=== PATIENT | female | born 1930 | race Caucasian/White ===

== ENCOUNTER → 2017-07-14 | Outpatient (CLI) | payer OTHER ==
--- NOTE | 2017-07-14 16:41 | KCIC ---
Bone mineral density exam History: Postmenopausal, osteoporosis screening Comparison: None Findings: Bone mineral density examination utilizing DEXA was performed. Left hip bone mineral density of 0.570 g/cm2 corresponds with a T score -3.0. The bone mineral density of the lumbar spine was 1.098 g/cm2 which corresponds with a T-score of 0.5. By World Congress on Osteoporosis criteria, a T score of 0 to-1 SD is considered to be within normal limits. A T score of -1 to -2.5 SD is considered osteopenia. A T score less than -2.5 SD is considered osteoporosis Impression: 1. 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 2. Bone mineral density of the lumbar spine is considered within normal limits although probably artificially elevated due to the presence of degenerative change. Electronically signed by: Anshul Blanton MD (07/14/2017 4:38 PM) [facility]
--- NOTE | 2017-07-15 10:09 | KCIC ---
Bilateral digital screening mammograms: Reason for examination: Routine screening. Baseline exam. Interpretation was made with the benefit of CAD. The skin and nipples show no abnormalities. No abnormal axillary lymph nodes are seen. The breast parenchyma shows scattered fibroglandular density. (Breast density: Category B.) There is a small nodule consistent with intramammary lymph node at the 2:00 C position of the left breast. There are no other dominant masses, suspicious calcifications or architectural distortions. Vascular calcifications are present. Impression: No evidence of malignancy. Recommend routine screening. BI-RADS Category 2: Benign. "Our facility is accredited by the [employer] [place] [employer] Mammography Program." This patient's information has been entered into a reminder system for the patient to be notified with the results of her examination and a target date for the next mammogram. Electronically signed by: Aida Luis MD (07/15/2017 10:06 AM) [id number]
== END | disposition home or self-care (01) ==
LOC: KCIC MAMMO 14:35
PROVIDERS: ATTEND Family Medicine
DX: Z12.31 Encounter for screening mammogram for malignant neoplasm of breast (principal); Z13.820 Encounter for screening for osteoporosis; M81.0 Age-related osteoporosis without current pathological fracture; Z78.0 Asymptomatic menopausal state
CPT/HCPCS: 77080; G0202; 77067

== ENCOUNTER → 2017-09-13 | Outpatient (CLI) | payer OTHER | END | disposition home or self-care (01) | LOC: PMGWOUND 13:31 | DX: L89.312 Pressure ulcer of right buttock, stage 2 (principal); M81.0 Age-related osteoporosis without current pathological fracture; E66.9 Obesity, unspecified; Z68.29 Body mass index [BMI] 29.0-29.9, adult; Z85.3 Personal history of malignant neoplasm of breast | CPT/HCPCS: 99204 ==

== ENCOUNTER 2018-08-25 15:55 | Inpatient (IN) | payer OTHER ==
[~2018-08-25] VITALS: Ht 165.1 cm; Wt 72.6 kg
[2018-08-25 17:31] LABS: BASO % 0 % (0-3); EOS % 0 % (0-3); LYMPH # 1.1 x10^3/uL (1.0-4.8); LYMPH % 9 % (24-48); MEAN CORPUSCULAR HEMOGLOBIN 29 pg (25-35); MEAN CORPUSCULAR HGB CONC 33 g/dL (31-37); MEAN CORPUSCULAR VOLUME 88 fL (79-100); MONO # 0.9 x10^3/uL (0.0-1.1); MONO % 7 % (0-9); NEUT # 10.4 x10^3uL (1.8-7.7); NEUT % 84 % (31-73); PLATELET COUNT 170 x10^3/uL (140-400); RED BLOOD COUNT 5.44 x10^6/uL (3.50-5.40); RED CELL DISTRIBUTION WIDTH 14.9 % (11.5-14.5); WHITE BLOOD COUNT 12.5 x10^3/uL (4.0-11.0)
--- NOTE | 2018-08-25 17:46 | EKG ---
[facility] [address] [place] [address] Test Date: 2018-08-25 Test Time: 16:49:11 Pat Name: MISTY BRANDT Department: Room: Gender: F [employer]: : 1930 Requested By: MYKEL STONE Order Number: [id number] Reading MD: Aaron Gupta Measurements Intervals [place] Rate: 82 P: -46 NH: 118 QRS: -33 QRSD: 90 T: 50 QT: 396 QTc: 466 Interpretive Statements SINUS RHYTHM NONSPECIFIC ST-T WAVE CHANGES Electronically Signed On 08-31-2018 15:03:46 YOUTUBER by Aaron Gupta
[2018-08-25 17:48] LABS: ALBUMIN 2.9 g/dL (3.4-5.0); ALBUMIN/GLOBULIN RATIO 0.5 (1.0-1.7); CALCIUM 9.7 mg/dL (8.5-10.1); CREATININE 2.6 mg/dL (0.6-1.0); GFR 17.5; TOTAL BILIRUBIN 1.5 mg/dL (0.2-1.0); TOTAL PROTEIN 8.6 g/dL (6.4-8.2)
[2018-08-25 17:52] LABS: POTASSIUM 2.9 mmol/L (3.5-5.1)
[2018-08-25 18:00] LABS: BILIRUBIN,URINE NEGATIVE (NEG); CLARITY,URINE CLEAR; COLOR,URINE YELLOW; NITRITE,URINE NEGATIVE (NEG); PROTEIN,URINE NEGATIVE (NEG-TRACE)
[2018-08-25] MEDS ORDERED: POTASSIUM CHLORIDE 20 MEQ TABLET.ER. PO ONE (18:00)
[2018-08-25] MEDS ORDERED: IV NORMAL SALINE 1000ML BAG 1,000 ML IV ONE ×2 (18:00→18:45)
[2018-08-25 18:07] LABS: RBC,URINE 0 /HPF (0-2); WBC,URINE 0 /HPF (0-4)
[2018-08-25 18:08] LABS: AMORPHOUS SEDIMENT,UR PRESENT /HPF; BACTERIA,URINE 0 /HPF (0-FEW); GRANULAR CASTS,URINE OCCASIONAL /HPF; HYALINE CASTS, URINE FEW /HPF; SQUAMOUS EPITHELIAL CELL,UR OCC /LPF
[2018-08-25] MEDS ORDERED: VANCOMYCIN PER PHARMACY MC PRN (18:30)
[2018-08-25] MEDS ORDERED: cefTRIAXone IV Push 1 GM VIAL. IVP ONE (18:30)
[2018-08-25] MEDS ORDERED: AZITHROMYCIN 250 MG TABLET. PO ONE (18:30)
[2018-08-25] MEDS ORDERED: ONDANSETRON PF 4 MG/2 ML VIAL. IV ONE (18:45)
[2018-08-25] MEDS ORDERED: VANCOMYCIN 1.5 GM in IV NORMAL SALINE 500ML BAG 500 ML IV ONE (18:45)
[2018-08-25] MEDS ORDERED: fentaNYL PF VIAL 100 MCG/2 ML VIAL IV PRN (19:00)
[2018-08-25] MEDS ORDERED: fentaNYL PF VIAL 100 MCG/2 ML VIAL IV ONE (19:00)
[2018-08-25] MEDS ORDERED: ACETAMINOPHEN 325 MG TABLET. PO PRN (19:00)
[2018-08-25] MEDS ORDERED: ONDANSETRON PF 4 MG/2 ML VIAL. IV PRN (19:00)
--- NOTE | 2018-08-25 19:27 | RAD ---
EXAM: Chest, single view. HISTORY: Weakness COMPARISON: None. FINDINGS: A frontal view of the chest is obtained. There is suspected left basilar pleural thickening or trace left pleural fluid. There is no infiltrate. There is no pneumothorax. The heart is normal in size. There are few calcified granulomas. IMPRESSION: Suspected left basilar pleural thickening or trace pleural fluid. Electronically signed by: Lennie Mesa MD (08/25/2018 7:23 PM) [facility]
--- NOTE | 2018-08-25 20:44 | NUR ---
Pharmacy Vancomycin Dosing Note S:Consulted to monitor and dose vancomycin started 08/25/18. O:MISTY BRANDT is a 88 year old F with Pneumonia Height: 5 feet, 5 inches Weight: 72.6 kg [place] Body Weight: 57.00 Adjusted Body Weight: 63.40 Dosing Weight: Actual Other Antibiotics: rocephin 1g 1x LABS: Last BUN: 67 Last Creatinine: 2.6 Creatinine Clearance: 15 mL/min Last WBC: 12.5 Last Platelets: 170 Tmax (past 24 hours): 97.8 Microbiology: - I/O: - Last dose given 08/25/18 at 1907 Vancomycin Dosing: Loading Dose: 1500 mg x1 Dosing Weight: Actual Target Trough: 15-20 A: Based on: weight and renal function P: 1. Dose Vancomycin 1500 mg IV One Time 2. Follow up Random level on 08/27/18 at 1900 3. Pharmacy will continue to monitor, follow and adjust therapy as needed. Olesya Aponte Tawnya, 08/25/18 [id number]
[2018-08-25] MEDS: IV NORMAL SALINE 1000ML BAG 1,000 ML IV SCH (22:17)
[2018-08-25 23:37] VITALS: BP 124/56
--- NOTE | 2018-08-25 23:37 | PHYS DOC ---
Past Medical History Past Medical History: Hypotension Past Surgical History: Appendectomy, Cholecystectomy Alcohol Use: Rarely Drug Use: None Adult General Chief Complaint Chief Complaint: WEAKNESS/GENERALIZED HPI HPI Patient is a 88 year old female who presents with weakness that has been increasing over the past month according to her daughter. Her daughter states that her mentation has changed over the past few days. She seems to have worsened with her memory. The patient also discovered sores on the patient's buttocks. She has had a mild cough but no fever. She denies urgency, frequency or burning with urination. She denies pain. Review of Systems Review of Systems Constitutional: Denies fever or chills [] Eyes: Denies change in visual acuity, redness, or eye pain [] HENT: Denies nasal congestion or sore throat [] Respiratory: Denies cough or shortness of breath [] Cardiovascular: No additional information not addressed in HPI [] GI: Denies abdominal pain, nausea, vomiting, bloody stools or diarrhea [] : Denies dysuria or hematuria [] Musculoskeletal: Denies back pain or joint pain [] Integument: Denies rash or skin lesions [] Neurologic: Denies headache, focal weakness or sensory changes [] Endocrine: Denies polyuria or polydipsia [] All other systems were reviewed and found to be within normal limits, except as documented in this note. Current Medications Current Medications Current Medications Medications (Trade) Dose Ordered Sig/Edwin Start Time Stop Time Status Last Admin Dose Admin Potassium Chloride (Klor-Con) 40 meq 1X ONCE 08/25/18 18:00 08/25/18 18:01 DC 08/25/18 18:12 40 MEQ Sodium Chloride 1,000 ml @ 1,000 mls/hr 1X ONCE 08/25/18 18:00 08/25/18 18:59 DC 08/25/18 18:13 1,000 MLS/HR Allergies Allergies Allergies Coded Allergies Type Severity Reaction Last Updated Verified No Known Drug Allergies 08/25/18 No Physical Exam Physical Exam Constitutional: Well developed, well nourished, no acute distress, non-toxic appearance. [] HENT: Normocephalic, atraumatic, bilateral external ears normal, oropharynx moist, no oral exudates, nose normal. [] Eyes: PERRLA, EOMI, conjunctiva normal, no discharge. [] Neck: Normal range of motion, no tenderness, supple, no stridor. [] Cardiovascular:Heart rate regular rhythm, no murmur [] Lungs & Thorax: Bilateral breath sounds clear to auscultation [] Abdomen: Bowel sounds normal, soft, no tenderness, no masses, no pulsatile masses. [] Skin: The patient has skin breakdown to bilateral buttocks, intertrigo noted to right abdominal fold and under left breast Back: No tenderness, no CVA tenderness. [] Extremities: No tenderness, no cyanosis, no clubbing, ROM intact, no edema. [] Neurologic: Alert and oriented X 3, normal motor function, normal sensory function, no focal deficits noted. [] Psychologic: Affect flat, judgement normal, mood normal. [] Current Patient Data Vital Signs Vital Signs Date Time Temp Pulse Resp B/P (MAP) Pulse Ox O2 Delivery O2 Flow Rate FiO2 08/25/18 18:00 68 18 97 08/25/18 16:20 97.8 158/73 (101) Room Air 97.8 Lab Values Laboratory Tests Test 08/25/18 16:39 08/25/18 17:15 08/25/18 17:50 Sodium Level 142 mmol/L (136-145) Potassium Level 2.9 mmol/L (3.5-5.1) *L Chloride Level 97 mmol/L (98-107) L Carbon Dioxide Level 29 mmol/L (21-32) Anion Gap 16 (6-14) H Blood Urea Nitrogen 67 mg/dL (7-20) H Creatinine 2.6 mg/dL (0.6-1.0) H Estimated GFR (Cockcroft-Gault) 17.5 BUN/Creatinine Ratio 26 (6-20) H Glucose Level 125 mg/dL (70-99) H Calcium Level 9.7 mg/dL (8.5-10.1) Total Bilirubin 1.5 mg/dL (0.2-1.0) H Aspartate Amino Transferase (AST) 33 U/L (15-37) Alanine Aminotransferase (ALT) 26 U/L (14-59) Alkaline Phosphatase 143 U/L (46-116) H Total Protein 8.6 g/dL (6.4-8.2) H Albumin 2.9 g/dL (3.4-5.0) L Albumin/Globulin Ratio 0.5 (1.0-1.7) L White Blood Count 12.5 x10^3/uL (4.0-11.0) H Red Blood Count 5.44 x10^6/uL (3.50-5.40) H Hemoglobin 16.0 g/dL (12.0-15.5) H Hematocrit 48.0 % (36.0-47.0) H Mean Corpuscular Volume 88 fL (79-100) Mean Corpuscular Hemoglobin 29 pg (25-35) Mean Corpuscular Hemoglobin Concent 33 g/dL (31-37) Red Cell Distribution Width 14.9 % (11.5-14.5) H Platelet Count 170 x10^3/uL (140-400) Neutrophils (%) (Auto) 84 % (31-73) H Lymphocytes (%) (Auto) 9 % (24-48) L Monocytes (%) (Auto) 7 % (0-9) Eosinophils (%) (Auto) 0 % (0-3) Basophils (%) (Auto) 0 % (0-3) Neutrophils # (Auto) 10.4 x10^3uL (1.8-7.7) H Lymphocytes # (Auto) 1.1 x10^3/uL (1.0-4.8) Monocytes # (Auto) 0.9 x10^3/uL (0.0-1.1) Eosinophils # (Auto) 0.0 x10^3/uL (0.0-0.7) Basophils # (Auto) 0.0 x10^3/uL (0.0-0.2) Lactic Acid Level 4.1 mmol/L (0.4-2.0) *H Troponin I Quantitative 0.021 ng/mL (0.000-0.055) Urine Collection Type U cath Urine Color Yellow Urine Clarity Clear Urine pH 5.0 Urine Specific [place] 1.020 Urine Protein Negative mg/dL (NEG-TRACE) Urine Glucose (UA) Negative mg/dL (NEG) Urine Ketones (Stick) Negative mg/dL (NEG) Urine Blood Negative (NEG) Urine Nitrite Negative (NEG) Urine Bilirubin Negative (NEG) Urine Urobilinogen Dipstick 1.0 mg/dL (0.2 mg/dL) Urine Leukocyte Esterase Negative (NEG) Urine RBC 0 /HPF (0-2) Urine WBC 0 /HPF (0-4) Urine Squamous Epithelial Cells Occ /LPF Urine Amorphous Sediment Present /HPF Urine Bacteria 0 /HPF (0-FEW) Urine Hyaline Casts Few /HPF Urine Granular Casts Occasional /HPF Urine Mucus Slight /LPF Laboratory Tests 08/25/18 17:15 Laboratory Tests 08/25/18 16:39 EKG EKG [] Radiology/Procedures Radiology/Procedures []PATIENT: MISTY BRANDT BACCOUNT: [id number]#: [id number] : 1930 LOCATION: ER AGE: 88 SEX: F EXAM STATUS: REG ER ORD. PHYSICIAN: MYKEL STONE APRN REASON: weakness PROCEDURE: CHEST AP ONLY EXAM: Chest, single view. HISTORY: Weakness COMPARISON: None. FINDINGS: A frontal view of the chest is obtained. There is suspected left basilar pleural thickening or trace left pleural fluid. There is no infiltrate. There is no pneumothorax. The heart is normal in size. There are few calcified granulomas. IMPRESSION: Suspected left basilar pleural thickening or trace pleural fluid. Electronically signed by: Lennie Kumari MD (08/25/2018 7:23 PM) [facility] DICTATED and SIGNED BY: LENNIE KUMARI MD DATE: 08/25/181922 Course & Med Decision Making Course & Med Decision Making Pertinent Labs and Imaging studies reviewed. (See chart for details) []The patient does have an elevated creatinine as well as a slightly elevated white count. Her daughter states that she has no prior history of kidney disease. She is being admitted to Dr. Lang's service. She has been given Rocephin and Ancef, for her findings on chest x-ray as well as her skin condition. Nephrology was consulted. She is receiving fluid boluses for her creatinine. Dragon Disclaimer Dragon Disclaimer This electronic medical record was generated, in whole or in part, using a voice recognition dictation system. Departure Departure Impression: Primary Impression: Skin breakdown Additional Impressions: Elevated serum creatinine Weakness Disposition: ADMITTED INPATIENT Admitting Physician: Other Condition: STABLE Referrals: JAVI PORTILLO (PCP) Problem Qualifiers MYKEL STONE APRN Aug 25, 2018 23:37
[2018-08-26] MEDS ORDERED: POTA10TA12 PO (02:17)
[2018-08-26] MEDS ORDERED: CHLO25TA10 PO (02:17)
[2018-08-26] MEDS ORDERED: FURO20TA3 PO (02:17)
[2018-08-26] MEDS ORDERED: CHOL10003 PO (02:17)
[2018-08-26] MEDS ORDERED: DOXY100C2 PO (02:17)
[2018-08-26 03:19] VITALS: BP 107/56
[2018-08-26] MEDS: IV NORMAL SALINE 1000ML BAG 1,000 ML IV SCH ×2 (04:22→12:46)
[2018-08-26 07:00] VITALS: BP 111/55
[2018-08-26] MEDS ORDERED: ONDANSETRON PF 4 MG/2 ML VIAL. IV PRN (08:15)
--- NOTE | 2018-08-26 08:49 | PDOC1 ---
History and Physical Date of Admission Date of Admission DATE: 08/26/18 TIME: 08:38 Identification/Chief Complaint Chief Complaint Worsening confusion and weakness in the assisted Source Source: Caregiver, Chart review, Patient History of Present Illness History of Present Illness 88-year-old female who is a assisted resident, no daughter at bedside currently but apparently Dtr. Might have been at the emergency room. In any case brought in by staff because of worsening confusion, decreased by mouth and worsening generalized weakness in the assisted. On labs found to be dehydrated with a creatinine of 2.6 which is new, hypokalemia 2.9. Hemoconcentration hemoglobin 16 with a leukocytosis of 12 with no source of infection. UA isn't impressive for UTI, chest x-ray maybe just shows atelectasis. She was started on vancomycin-unclear reasons. But creatinine is 2.6. Platelets are normal at 170. I am holding diuretic - she is on chlorthalidone HCTZ etc. at home. Minimal historian. She does have buttock sores. Most likely she has just minimal ambulation. We'll consult wound care. Renal has also been consulted and getting IV fluid aggressive hydration anywhere between 125 to 150 mL an hour. Past Medical History Cardiovascular: HTN Pulmonary: Bronchitis Past Surgical History Past Surgical History: Other (unknown) Family History Family History: Family History Unknown Social History Smoke: No ALCOHOL: none Drugs: None Current Problem List Problem List Problems Medical Problems: (1) Elevated serum creatinine Status: Acute (2) Skin breakdown Status: Acute (3) Weakness Status: Acute Current Medications Current Medications Current Medications Sodium Chloride 1,000 ml @ 1,000 mls/hr 1X ONCE IV Last administered on 08/25at 18:13; Start 08/25/18 at 18:00; Stop 08/25/18 at 18:59; Status DC Potassium Chloride (Klor-Con) 40 meq 1X ONCE PO Last administered on at 18:12; Start 08/25/18 at 18:00; Stop 08/25/18 at 18:01; Status DC Azithromycin (Zithromax) 1,000 mg 1X ONCE PO ; Start 08/25/18 at 18:30; Stop 08/25/18 at 18:31; Status UNV Ceftriaxone Sodium (Rocephin) 1 gm 1X ONCE IVP Last administered on at 19:06; Start 08/25/18 at 18:30; Stop 08/25/18 at 18:31; Status DC Vancomycin HCl (Vanco Per Pharmacy) 1 each PRN DAILY PRN MC SEE COMMENTS Last administered on 08/25/18at 20:41; Start 08/25/18 at 18:30; Stop 08/26/18 at 08 :01; Status DC Vancomycin HCl 1.5 gm/Sodium Chloride 500 ml @ 250 mls/hr 1X ONCE IV Last administered on 08/25/18at 19:07; Start 08/25/18 at 18:45; Stop 08/25/18 at 20 :44; Status DC Ondansetron HCl (Zofran) 4 mg 1X ONCE IV Last administered on 08/25/18at 19:06 ; Start 08/25/18 at 18:45; Stop 08/25/18 at 18:46; Status DC Sodium Chloride 1,000 ml @ 1,000 mls/hr 1X ONCE IV Last administered on 08/25at 19:22; Start 08/25/18 at 18:45; Stop 08/25/18 at 19:44; Status DC Fentanyl Citrate (Fentanyl 2ml Vial) 50 mcg 1X ONCE IV Last administered on at 19:06; Start 08/25/18 at 19:00; Stop 08/25/18 at 19:01; Status DC Ondansetron HCl (Zofran) 4 mg PRN Q8HRS PRN IV NAUSEA/VOMITING; Start at 19:00; Stop 08/26/18 at 08:01; Status DC Fentanyl Citrate (Fentanyl 2ml Vial) 50 mcg PRN Q1HR PRN IV PAIN; Start at 19:00; Stop 08/26/18 at 18:59 Sodium Chloride 1,000 ml @ 125 mls/hr Q8H IV Last administered on 08/26/18at 04:22; Start 08/25/18 at 18:47; Stop 08/26/18 at 18:46 Acetaminophen (Tylenol) 650 mg PRN Q4HRS PRN PO FEVER; Start 08/25/18 at 19:00 ; Stop 08/26/18 at 18:59 Vancomycin HCl (Vancomycin Random Level) 1 each 1X ONCE MC ; Start 08/27/18 at 19:00; Stop 08/27/18 at 19:01; Status Cancel Influenza Virus Vaccine (Afluria Trivalent [id number] Syringe) 0.5 ml ONCE ONCE VAX IM ; Start 08/25/18 at 22:00; Stop 08/25/18 at 22:01; Status DC Ondansetron HCl (Zofran) 4 mg PRN Q6HRS PRN IV NAUSEA/VOMITING; Start at 08:15 Vitamin D (Vitamin D3) 3,000 unit DAILY PO ; Start 08/26/18 at 09:00 Potassium Chloride (Klor-Con) 40 meq 1X ONCE PO ; Start 08/26/18 at 09:00; Stop 08/26/18 at 09:01 Potassium Chloride (Klor-Con) 40 meq DAILYWBKFT PO ; Start 08/27/18 at 08:00 Active Scripts Active Reported Doxycycline Hyclate 100 Mg Capsule 1 Cap PO BID Chlorthalidone (Chlorthalidone) 25 Mg Tablet 25 Mg PO DAILY Furosemide 20 Mg Tablet 20 Mg PO DAILY Potassium Chloride 10 Meq Tab.sr.24h 10 Meq PO DAILY Vitamin D3 (Cholecalciferol (Vitamin D3)) 1,000 Unit Tablet 3,000 Unit PO DAILY Allergies Allergies: Coded Allergies: No Known Drug Allergies (Unverified , 08/25/18) ROS Review of System limited ROS, some dementia or cognitive impairment, she denies any pain to me Physical Exam General: Cooperative, No acute distress, Other (oriented to self and place, calm) HEENT: Atraumatic, PERRLA, EOMI Lungs: Normal air movement, Other (decreased breath sounds, poor effort) Cardiovascular: S1, S2 Breasts: Normal, Rt breast nml w/o mass, Lt breast nml w/o mass, Nipples normal Abdomen: Normal bowel sounds, Soft, No tenderness, No hepatosplenomegaly, No masses Rectal Exam: not examined PELVIC: Nml ext genitalia Extremities: No clubbing, No cyanosis, No edema, Normal pulses, No tenderness/ swelling Skin: Other (senile skin turgor, minimal subcutaneous tissue) Neuro: Normal gait, Normal speech, Strength at 5/5 X4 ext, Normal tone, Sensation intact, Cranial nerves 3-12 NL, Reflexes 2+ Psych/Mental Status: Mental status NL, Mood NL Vitals Vitals Vital Signs Date Time Temp Pulse Resp B/P (MAP) Pulse Ox O2 Delivery O2 Flow Rate FiO2 08/26/18 07:00 97.8 70 18 111/55 (73) 99 Nasal Cannula 3.0 97.8 Labs Labs Laboratory Tests Test 08/25/18 16:39 08/25/18 17:15 08/25/18 17:50 08/25/18 21:15 Sodium Level 142 mmol/L (136-145) Potassium Level 2.9 mmol/L (3.5-5.1) Chloride Level 97 mmol/L (98-107) Carbon Dioxide Level 29 mmol/L (21-32) Anion Gap 16 (6-14) Blood Urea Nitrogen 67 mg/dL (7-20) Creatinine 2.6 mg/dL (0.6-1.0) Estimated GFR (Cockcroft-Gault) 17.5 BUN/Creatinine Ratio 26 (6-20) Glucose Level 125 mg/dL (70-99) Calcium Level 9.7 mg/dL (8.5-10.1) Total Bilirubin 1.5 mg/dL (0.2-1.0) Aspartate Amino Transf (AST/SGOT) 33 U/L (15-37) Alanine Aminotransferase (ALT/SGPT) 26 U/L (14-59) Alkaline Phosphatase 143 U/L (46-116) Total Protein 8.6 g/dL (6.4-8.2) Albumin 2.9 g/dL (3.4-5.0) Albumin/Globulin Ratio 0.5 (1.0-1.7) White Blood Count 12.5 x10^3/uL (4.0-11.0) Red Blood Count 5.44 x10^6/uL (3.50-5.40) Hemoglobin 16.0 g/dL (12.0-15.5) Hematocrit 48.0 % (36.0-47.0) Mean Corpuscular Volume 88 fL (79-100) Mean Corpuscular Hemoglobin 29 pg (25-35) Mean Corpuscular Hemoglobin Concent 33 g/dL (31-37) Red Cell Distribution Width 14.9 % (11.5-14.5) Platelet Count 170 x10^3/uL (140-400) Neutrophils (%) (Auto) 84 % (31-73) Lymphocytes (%) (Auto) 9 % (24-48) Monocytes (%) (Auto) 7 % (0-9) Eosinophils (%) (Auto) 0 % (0-3) Basophils (%) (Auto) 0 % (0-3) Neutrophils # (Auto) 10.4 x10^3uL (1.8-7.7) Lymphocytes # (Auto) 1.1 x10^3/uL (1.0-4.8) Monocytes # (Auto) 0.9 x10^3/uL (0.0-1.1) Eosinophils # (Auto) 0.0 x10^3/uL (0.0-0.7) Basophils # (Auto) 0.0 x10^3/uL (0.0-0.2) Lactic Acid Level 4.1 mmol/L (0.4-2.0) 2.6 mmol/L (0.4-2.0) Troponin I Quantitative 0.021 ng/mL (0.000-0.055) Urine Collection Type U cath Urine Color Yellow Urine Clarity Clear Urine pH 5.0 Urine Specific [place] 1.020 Urine Protein Negative mg/dL (NEG-TRACE) Urine Glucose (UA) Negative mg/dL (NEG) Urine Ketones (Stick) Negative mg/dL (NEG) Urine Blood Negative (NEG) Urine Nitrite Negative (NEG) Urine Bilirubin Negative (NEG) Urine Urobilinogen Dipstick 1.0 mg/dL (0.2 mg/dL) Urine Leukocyte Esterase Negative (NEG) Urine RBC 0 /HPF (0-2) Urine WBC 0 /HPF (0-4) Urine Squamous Epithelial Cells Occ /LPF Urine Amorphous Sediment Present /HPF Urine Bacteria 0 /HPF (0-FEW) Urine Hyaline Casts Few /HPF Urine Granular Casts Occasional /HPF Urine Mucus Slight /LPF Laboratory Tests Test 08/25/18 16:39 08/25/18 17:15 08/25/18 17:50 08/25/18 21:15 Sodium Level 142 mmol/L (136-145) Potassium Level 2.9 mmol/L (3.5-5.1) Chloride Level 97 mmol/L (98-107) Carbon Dioxide Level 29 mmol/L (21-32) Anion Gap 16 (6-14) Blood Urea Nitrogen 67 mg/dL (7-20) Creatinine 2.6 mg/dL (0.6-1.0) Estimated GFR (Cockcroft-Gault) 17.5 BUN/Creatinine Ratio 26 (6-20) Glucose Level 125 mg/dL (70-99) Calcium Level 9.7 mg/dL (8.5-10.1) Total Bilirubin 1.5 mg/dL (0.2-1.0) Aspartate Amino Transf (AST/SGOT) 33 U/L (15-37) Alanine Aminotransferase (ALT/SGPT) 26 U/L (14-59) Alkaline Phosphatase 143 U/L (46-116) Total Protein 8.6 g/dL (6.4-8.2) Albumin 2.9 g/dL (3.4-5.0) Albumin/Globulin Ratio 0.5 (1.0-1.7) White Blood Count 12.5 x10^3/uL (4.0-11.0) Red Blood Count 5.44 x10^6/uL (3.50-5.40) Hemoglobin 16.0 g/dL (12.0-15.5) Hematocrit 48.0 % (36.0-47.0) Mean Corpuscular Volume 88 fL (79-100) Mean Corpuscular Hemoglobin 29 pg (25-35) Mean Corpuscular Hemoglobin Concent 33 g/dL (31-37) Red Cell Distribution Width 14.9 % (11.5-14.5) Platelet Count 170 x10^3/uL (140-400) Neutrophils (%) (Auto) 84 % (31-73) Lymphocytes (%) (Auto) 9 % (24-48) Monocytes (%) (Auto) 7 % (0-9) Eosinophils (%) (Auto) 0 % (0-3) Basophils (%) (Auto) 0 % (0-3) Neutrophils # (Auto) 10.4 x10^3uL (1.8-7.7) Lymphocytes # (Auto) 1.1 x10^3/uL (1.0-4.8) Monocytes # (Auto) 0.9 x10^3/uL (0.0-1.1) Eosinophils # (Auto) 0.0 x10^3/uL (0.0-0.7) Basophils # (Auto) 0.0 x10^3/uL (0.0-0.2) Lactic Acid Level 4.1 mmol/L (0.4-2.0) 2.6 mmol/L (0.4-2.0) Troponin I Quantitative 0.021 ng/mL (0.000-0.055) Urine Collection Type U cath Urine Color Yellow Urine Clarity Clear Urine pH 5.0 Urine Specific [place] 1.020 Urine Protein Negative mg/dL (NEG-TRACE) Urine Glucose (UA) Negative mg/dL (NEG) Urine Ketones (Stick) Negative mg/dL (NEG) Urine Blood Negative (NEG) Urine Nitrite Negative (NEG) Urine Bilirubin Negative (NEG) Urine Urobilinogen Dipstick 1.0 mg/dL (0.2 mg/dL) Urine Leukocyte Esterase Negative (NEG) Urine RBC 0 /HPF (0-2) Urine WBC 0 /HPF (0-4) Urine Squamous Epithelial Cells Occ /LPF Urine Amorphous Sediment Present /HPF Urine Bacteria 0 /HPF (0-FEW) Urine Hyaline Casts Few /HPF Urine Granular Casts Occasional /HPF Urine Mucus Slight /LPF VTE Prophylaxis Ordered VTE Prophylaxis Devices: Yes VTE Pharmacological Prophylaxi: Yes Assessment/Plan Assessment/Plan Severe dehydration evidenced by hemoconcentration reactive leukocytosis and hypercalcemia Sepsis/SIRS with AK I VMN-lactate 4.1 on admission, down to 2.6 after IV fluid No signs of infection Critical hypokalemia 2.9 AK I VMN-creatinine 2.6-on chlorthalidone at home SNU resident Worsening generalized weakness in the background of dehydration Possible dementia FULL CODE Plan: ADMit 2 MN Agree with aggressive IV fluid hydration, hold chlorthalidone and nephrotoxins Renal has been consulted BMP again tomorrow PT OT So far full code on chart I DC vancomycin since I don't have a strong source of infection and it is nephrotoxic Recheck hemoconcentration and leukocytosis tomorrow Fall risk Nutrition consult Further recs pending above MAXX MANRIQUEZ MD Aug 26, 2018 08:49
[2018-08-26] MEDS ORDERED: POTASSIUM CHLORIDE 20 MEQ TABLET.ER. PO ONE (09:00)
[2018-08-26] MEDS: CHOLECALCIFEROL (VITAMIN D3) 1,000 UNIT TABLET PO SCH (09:05)
[2018-08-26 10:20] LABS: BASO % 0 % (0-3); EOS # 0.1 x10^3/uL (0.0-0.7); EOS % 1 % (0-3); HEMATOCRIT 39.6 % (36.0-47.0); HEMOGLOBIN 13.4 g/dL (12.0-15.5); LYMPH # 1.4 x10^3/uL (1.0-4.8); LYMPH % 14 % (24-48); MEAN CORPUSCULAR HEMOGLOBIN 30 pg (25-35); MEAN CORPUSCULAR HGB CONC 34 g/dL (31-37); MEAN CORPUSCULAR VOLUME 90 fL (79-100); MONO # 0.6 x10^3/uL (0.0-1.1); MONO % 6 % (0-9); NEUT # 8.5 x10^3uL (1.8-7.7); NEUT % 80 % (31-73); PLATELET COUNT 137 x10^3/uL (140-400); RED BLOOD COUNT 4.41 x10^6/uL (3.50-5.40); RED CELL DISTRIBUTION WIDTH 14.6 % (11.5-14.5); WHITE BLOOD COUNT 10.7 x10^3/uL (4.0-11.0)
[2018-08-26 10:33] LABS: CALCIUM 8.1 mg/dL (8.5-10.1); GFR 23.6
[2018-08-26 10:39] LABS: POTASSIUM 2.7 mmol/L (3.5-5.1)
[2018-08-26 11:00] VITALS: BP 124/56
--- NOTE | 2018-08-26 13:34 | PDOC2 ---
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 On labs found to be dehydrated with a creatinine of 2.6 which is new, hypokalemia 2.9. She is on chlorthalidone HCTZ etc. at home. Poor historian. She is sitting up in bed, alert. States she is doing alright. Denies any N/V As per RN- family reported she had vomiting at the [place] . She is Incontinent , she denies any Symptoms of UTI Past Medical History Cardiovascular: HTN Pulmonary: Bronchitis Past Surgical History Past Surgical History: Other (unknown) Family History Family History: Family History Unknown Social History No ALCOHOL: none Drugs: None Current Problem List Problem List Problems Medical Problems: (1) Elevated serum creatinine Status: Acute (2) Skin breakdown Status: Acute (3) Weakness Status: Acute Current Medications Current Medications Current Medications Sodium Chloride 1,000 ml @ 1,000 mls/hr 1X ONCE IV Last administered on 08/25at 18:13; Start 08/25/18 at 18:00; Stop 08/25/18 at 18:59; Status DC Potassium Chloride (Klor-Con) 40 meq 1X ONCE PO Last administered on at 18:12; Start 08/25/18 at 18:00; Stop 08/25/18 at 18:01; Status DC Azithromycin (Zithromax) 1,000 mg 1X ONCE PO ; Start 08/25/18 at 18:30; Stop 08/25/18 at 18:31; Status UNV Ceftriaxone Sodium (Rocephin) 1 gm 1X ONCE IVP Last administered on at 19:06; Start 08/25/18 at 18:30; Stop 08/25/18 at 18:31; Status DC Vancomycin HCl (Vanco Per Pharmacy) 1 each PRN DAILY PRN MC SEE COMMENTS Last administered on 08/25/18at 20:41; Start 08/25/18 at 18:30; Stop 08/26/18 at 08 :01; Status DC Vancomycin HCl 1.5 gm/Sodium Chloride 500 ml @ 250 mls/hr 1X ONCE IV Last administered on 08/25/18at 19:07; Start 08/25/18 at 18:45; Stop 08/25/18 at 20 :44; Status DC Ondansetron HCl (Zofran) 4 mg 1X ONCE IV Last administered on 08/25/18at 19:06 ; Start 08/25/18 at 18:45; Stop 08/25/18 at 18:46; Status DC Sodium Chloride 1,000 ml @ 1,000 mls/hr 1X ONCE IV Last administered on 08/25at 19:22; Start 08/25/18 at 18:45; Stop 08/25/18 at 19:44; Status DC Fentanyl Citrate (Fentanyl 2ml Vial) 50 mcg 1X ONCE IV Last administered on at 19:06; Start 08/25/18 at 19:00; Stop 08/25/18 at 19:01; Status DC Ondansetron HCl (Zofran) 4 mg PRN Q8HRS PRN IV NAUSEA/VOMITING; Start at 19:00; Stop 08/26/18 at 08:01; Status DC Fentanyl Citrate (Fentanyl 2ml Vial) 50 mcg PRN Q1HR PRN IV PAIN; Start at 19:00; Stop 08/26/18 at 18:59 Sodium Chloride 1,000 ml @ 125 mls/hr Q8H IV Last administered on 08/26/18at 12:46; Start 08/25/18 at 18:47; Stop 08/26/18 at 18:46 Acetaminophen (Tylenol) 650 mg PRN Q4HRS PRN PO FEVER Last administered on at 09:05; Start 08/25/18 at 19:00; Stop 08/26/18 at 18:59 Vancomycin HCl (Vancomycin Random Level) 1 each 1X ONCE MC ; Start 08/27/18 at 19:00; Stop 08/27/18 at 19:01; Status Cancel Influenza Virus Vaccine (Afluria Trivalent [id number] Syringe) 0.5 ml ONCE ONCE VAX IM Last administered on 08/26/18at 12:49; Start 08/25/18 at 22:00; Stop 08/25/18 at 22:01; Status DC Ondansetron HCl (Zofran) 4 mg PRN Q6HRS PRN IV NAUSEA/VOMITING; Start at 08:15 Vitamin D (Vitamin D3) 3,000 unit DAILY PO Last administered on 08/26/18at 09: 05; Start 08/26/18 at 09:00 Potassium Chloride (Klor-Con) 40 meq 1X ONCE PO Last administered on at 09:05; Start 08/26/18 at 09:00; Stop 08/26/18 at 09:01; Status DC Potassium Chloride (Klor-Con) 40 meq DAILYWBKFT PO ; Start 08/27/18 at 08:00; Stop 08/27/18 at 08:00; Status DC Potassium Chloride (Klor-Con) 40 meq BIDWMEALS PO ; Start 08/26/18 at 17:00 Active Scripts Active Reported Doxycycline Hyclate 100 Mg Capsule 1 Cap PO BID Chlorthalidone (Chlorthalidone) 25 Mg Tablet 25 Mg PO DAILY Furosemide 20 Mg Tablet 20 Mg PO DAILY Potassium Chloride 10 Meq Tab.sr.24h 10 Meq PO DAILY Vitamin D3 (Cholecalciferol (Vitamin D3)) 1,000 Unit Tablet 3,000 Unit PO DAILY Allergies Allergies: Coded Allergies: No Known Drug Allergies (Unverified , 08/25/18) ROS Review of System Poor Historian Physical Exam Physical Exam General: No acute distress, oriented to self and place HEENT: OM dry Neck Supple, No JVD Lungs: CTA , No use of acc muscle Cardiovascular: S1, S2, RRR Abdomen: , Soft, No tenderness Extremities: No edema, Skin: No rash Neuro: Grossly normal - No coleman, No CVA or SP tenderness Vital Signs Vital Signs Date Time Temp Pulse Resp B/P (MAP) Pulse Ox O2 Delivery O2 Flow Rate FiO2 08/26/18 11:00 97.3 60 16 124/56 (78) 99 Nasal Cannula 3.0 97.3 Assessment & Plan ANNIE- pre-renal/ Dehydration- Poor PO intake UA Unremarkable IVF , Holding Diuretics Creatinine improving Hypokalemia- Critical , Replacing HTN- BP stable IVF , Hold antihypertensives Alerted MS- Currently alert Discussed with RN and family at bedside Labs Labs Laboratory Tests Test 08/25/18 16:39 08/25/18 17:15 08/25/18 17:50 08/25/18 21:15 Sodium Level 142 mmol/L (136-145) Potassium Level 2.9 mmol/L (3.5-5.1) Chloride Level 97 mmol/L (98-107) Carbon Dioxide Level 29 mmol/L (21-32) Anion Gap 16 (6-14) Blood Urea Nitrogen 67 mg/dL (7-20) Creatinine 2.6 mg/dL (0.6-1.0) Estimated GFR (Cockcroft-Gault) 17.5 BUN/Creatinine Ratio 26 (6-20) Glucose Level 125 mg/dL (70-99) Calcium Level 9.7 mg/dL (8.5-10.1) Total Bilirubin 1.5 mg/dL (0.2-1.0) Aspartate Amino Transf (AST/SGOT) 33 U/L (15-37) Alanine Aminotransferase (ALT/SGPT) 26 U/L (14-59) Alkaline Phosphatase 143 U/L (46-116) Total Protein 8.6 g/dL (6.4-8.2) Albumin 2.9 g/dL (3.4-5.0) Albumin/Globulin Ratio 0.5 (1.0-1.7) White Blood Count 12.5 x10^3/uL (4.0-11.0) Red Blood Count 5.44 x10^6/uL (3.50-5.40) Hemoglobin 16.0 g/dL (12.0-15.5) Hematocrit 48.0 % (36.0-47.0) Mean Corpuscular Volume 88 fL (79-100) Mean Corpuscular Hemoglobin 29 pg (25-35) Mean Corpuscular Hemoglobin Concent 33 g/dL (31-37) Red Cell Distribution Width 14.9 % (11.5-14.5) Platelet Count 170 x10^3/uL (140-400) Neutrophils (%) (Auto) 84 % (31-73) Lymphocytes (%) (Auto) 9 % (24-48) Monocytes (%) (Auto) 7 % (0-9) Eosinophils (%) (Auto) 0 % (0-3) Basophils (%) (Auto) 0 % (0-3) Neutrophils # (Auto) 10.4 x10^3uL (1.8-7.7) Lymphocytes # (Auto) 1.1 x10^3/uL (1.0-4.8) Monocytes # (Auto) 0.9 x10^3/uL (0.0-1.1) Eosinophils # (Auto) 0.0 x10^3/uL (0.0-0.7) Basophils # (Auto) 0.0 x10^3/uL (0.0-0.2) Lactic Acid Level 4.1 mmol/L (0.4-2.0) 2.6 mmol/L (0.4-2.0) Troponin I Quantitative 0.021 ng/mL (0.000-0.055) Urine Collection Type U cath Urine Color Yellow Urine Clarity Clear Urine pH 5.0 Urine Specific [place] 1.020 Urine Protein Negative mg/dL (NEG-TRACE) Urine Glucose (UA) Negative mg/dL (NEG) Urine Ketones (Stick) Negative mg/dL (NEG) Urine Blood Negative (NEG) Urine Nitrite Negative (NEG) Urine Bilirubin Negative (NEG) Urine Urobilinogen Dipstick 1.0 mg/dL (0.2 mg/dL) Urine Leukocyte Esterase Negative (NEG) Urine RBC 0 /HPF (0-2) Urine WBC 0 /HPF (0-4) Urine Squamous Epithelial Cells Occ /LPF Urine Amorphous Sediment Present /HPF Urine Bacteria 0 /HPF (0-FEW) Urine Hyaline Casts Few /HPF Urine Granular Casts Occasional /HPF Urine Mucus Slight /LPF Test 08/26/18 09:25 08/26/18 09:35 White Blood Count 10.7 x10^3/uL (4.0-11.0) Red Blood Count 4.41 x10^6/uL (3.50-5.40) Hemoglobin 13.4 g/dL (12.0-15.5) Hematocrit 39.6 % (36.0-47.0) Mean Corpuscular Volume 90 fL (79-100) Mean Corpuscular Hemoglobin 30 pg (25-35) Mean Corpuscular Hemoglobin Concent 34 g/dL (31-37) Red Cell Distribution Width 14.6 % (11.5-14.5) Platelet Count 137 x10^3/uL (140-400) Neutrophils (%) (Auto) 80 % (31-73) Lymphocytes (%) (Auto) 14 % (24-48) Monocytes (%) (Auto) 6 % (0-9) Eosinophils (%) (Auto) 1 % (0-3) Basophils (%) (Auto) 0 % (0-3) Neutrophils # (Auto) 8.5 x10^3uL (1.8-7.7) Lymphocytes # (Auto) 1.4 x10^3/uL (1.0-4.8) Monocytes # (Auto) 0.6 x10^3/uL (0.0-1.1) Eosinophils # (Auto) 0.1 x10^3/uL (0.0-0.7) Basophils # (Auto) 0.0 x10^3/uL (0.0-0.2) Erythrocyte Sedimentation Rate 10 (0-25) Sodium Level 146 mmol/L (136-145) Potassium Level 2.7 mmol/L (3.5-5.1) Chloride Level 107 mmol/L (98-107) Carbon Dioxide Level 28 mmol/L (21-32) Anion Gap 11 (6-14) Blood Urea Nitrogen 50 mg/dL (7-20) Creatinine 2.0 mg/dL (0.6-1.0) Estimated GFR (Cockcroft-Gault) 23.6 Glucose Level 110 mg/dL (70-99) Calcium Level 8.1 mg/dL (8.5-10.1) Thyroid Stimulating Hormone (TSH) 0.628 uIU/mL (0.358-3.74) Laboratory Tests Test 08/25/18 16:39 08/25/18 17:15 08/25/18 17:50 08/25/18 21:15 Sodium Level 142 mmol/L (136-145) Potassium Level 2.9 mmol/L (3.5-5.1) Chloride Level 97 mmol/L (98-107) Carbon Dioxide Level 29 mmol/L (21-32) Anion Gap 16 (6-14) Blood Urea Nitrogen 67 mg/dL (7-20) Creatinine 2.6 mg/dL (0.6-1.0) Estimated GFR (Cockcroft-Gault) 17.5 BUN/Creatinine Ratio 26 (6-20) Glucose Level 125 mg/dL (70-99) Calcium Level 9.7 mg/dL (8.5-10.1) Total Bilirubin 1.5 mg/dL (0.2-1.0) Aspartate Amino Transf (AST/SGOT) 33 U/L (15-37) Alanine Aminotransferase (ALT/SGPT) 26 U/L (14-59) Alkaline Phosphatase 143 U/L (46-116) Total Protein 8.6 g/dL (6.4-8.2) Albumin 2.9 g/dL (3.4-5.0) Albumin/Globulin Ratio 0.5 (1.0-1.7) White Blood Count 12.5 x10^3/uL (4.0-11.0) Red Blood Count 5.44 x10^6/uL (3.50-5.40) Hemoglobin 16.0 g/dL (12.0-15.5) Hematocrit 48.0 % (36.0-47.0) Mean Corpuscular Volume 88 fL (79-100) Mean Corpuscular Hemoglobin 29 pg (25-35) Mean Corpuscular Hemoglobin Concent 33 g/dL (31-37) Red Cell Distribution Width 14.9 % (11.5-14.5) Platelet Count 170 x10^3/uL (140-400) Neutrophils (%) (Auto) 84 % (31-73) Lymphocytes (%) (Auto) 9 % (24-48) Monocytes (%) (Auto) 7 % (0-9) Eosinophils (%) (Auto) 0 % (0-3) Basophils (%) (Auto) 0 % (0-3) Neutrophils # (Auto) 10.4 x10^3uL (1.8-7.7) Lymphocytes # (Auto) 1.1 x10^3/uL (1.0-4.8) Monocytes # (Auto) 0.9 x10^3/uL (0.0-1.1) Eosinophils # (Auto) 0.0 x10^3/uL (0.0-0.7) Basophils # (Auto) 0.0 x10^3/uL (0.0-0.2) Lactic Acid Level 4.1 mmol/L (0.4-2.0) 2.6 mmol/L (0.4-2.0) Troponin I Quantitative 0.021 ng/mL (0.000-0.055) Urine Collection Type U cath Urine Color Yellow Urine Clarity Clear Urine pH 5.0 Urine Specific [place] 1.020 Urine Protein Negative mg/dL (NEG-TRACE) Urine Glucose (UA) Negative mg/dL (NEG) Urine Ketones (Stick) Negative mg/dL (NEG) Urine Blood Negative (NEG) Urine Nitrite Negative (NEG) Urine Bilirubin Negative (NEG) Urine Urobilinogen Dipstick 1.0 mg/dL (0.2 mg/dL) Urine Leukocyte Esterase Negative (NEG) Urine RBC 0 /HPF (0-2) Urine WBC 0 /HPF (0-4) Urine Squamous Epithelial Cells Occ /LPF Urine Amorphous Sediment Present /HPF Urine Bacteria 0 /HPF (0-FEW) Urine Hyaline Casts Few /HPF Urine Granular Casts Occasional /HPF Urine Mucus Slight /LPF Test 08/26/18 09:25 08/26/18 09:35 White Blood Count 10.7 x10^3/uL (4.0-11.0) Red Blood Count 4.41 x10^6/uL (3.50-5.40) Hemoglobin 13.4 g/dL (12.0-15.5) Hematocrit 39.6 % (36.0-47.0) Mean Corpuscular Volume 90 fL (79-100) Mean Corpuscular Hemoglobin 30 pg (25-35) Mean Corpuscular Hemoglobin Concent 34 g/dL (31-37) Red Cell Distribution Width 14.6 % (11.5-14.5) Platelet Count 137 x10^3/uL (140-400) Neutrophils (%) (Auto) 80 % (31-73) Lymphocytes (%) (Auto) 14 % (24-48) Monocytes (%) (Auto) 6 % (0-9) Eosinophils (%) (Auto) 1 % (0-3) Basophils (%) (Auto) 0 % (0-3) Neutrophils # (Auto) 8.5 x10^3uL (1.8-7.7) Lymphocytes # (Auto) 1.4 x10^3/uL (1.0-4.8) Monocytes # (Auto) 0.6 x10^3/uL (0.0-1.1) Eosinophils # (Auto) 0.1 x10^3/uL (0.0-0.7) Basophils # (Auto) 0.0 x10^3/uL (0.0-0.2) Erythrocyte Sedimentation Rate 10 (0-25) Sodium Level 146 mmol/L (136-145) Potassium Level 2.7 mmol/L (3.5-5.1) Chloride Level 107 mmol/L (98-107) Carbon Dioxide Level 28 mmol/L (21-32) Anion Gap 11 (6-14) Blood Urea Nitrogen 50 mg/dL (7-20) Creatinine 2.0 mg/dL (0.6-1.0) Estimated GFR (Cockcroft-Gault) 23.6 Glucose Level 110 mg/dL (70-99) Calcium Level 8.1 mg/dL (8.5-10.1) Thyroid Stimulating Hormone (TSH) 0.628 uIU/mL (0.358-3.74) Review All relevant outside records, renal labs, imaging studies, telemetry/EKG's were reviewed. Images Images CxR-- A frontal view of the chest is obtained. There is suspected left basilar pleural thickening or trace left pleural fluid. There is no infiltrate. There is no pneumothorax. The heart is normal in size. There are few calcified granulomas. IMPRESSION: Suspected left basilar pleural thickening or trace pleural fluid. CATHERINE RHOADES MD Aug 26, 2018 13:34
--- NOTE | 2018-08-26 14:10 | NUR ---
WOUND CONSULT: Consult placed to eval and treat for open areas to coccyx. Stage II PUs present on each buttock, cleansed and applied AD ointment. Intertraigo noted to R groin fold, applied nystatin. No other open areas noted on head to toe assessment. P500 ordered. Plan to follow up 09/01/18. Communicated with nurse Miranda ACE.
[2018-08-26] MEDS ORDERED: VITS A & D/LANOLIN TOPICAL OINTMENT 56GM TUBE. TP PRN (14:15)
[2018-08-26 15:20] VITALS: BP 111/50
--- NOTE | 2018-08-26 15:21 | NUR ---
SW responding to a referral regarding high risk dc. Chart reviewed. Pt lives at home with family. PT/OT currently pending. SW will await for PT/OT recommendation to assess needs for SNU vs HH. SW will continue to follow.
[2018-08-26] MEDS: NYSTATIN TOPICAL POWDER 15GM BOTTLE. TP SCH ×2 (17:47→21:53)
[2018-08-26] MEDS: POTASSIUM CHLORIDE 20 MEQ TABLET.ER. PO SCH (17:47)
[2018-08-26 19:53] VITALS: BP 107/55
[2018-08-26 23:11] VITALS: BP 113/83
[2018-08-27 03:13] VITALS: BP 113/55
[2018-08-27 07:00] VITALS: BP 116/53
[2018-08-27 07:59] LABS: CALCIUM 8.2 mg/dL (8.5-10.1); CREATININE 1.5 mg/dL (0.6-1.0); GFR 32.9; POTASSIUM 3.5 mmol/L (3.5-5.1)
[2018-08-27] MEDS ORDERED: POTASSIUM CHLORIDE 20 MEQ TABLET.ER. PO SCH (08:00)
[2018-08-27] MEDS: POTASSIUM CHLORIDE 20 MEQ TABLET.ER. PO SCH ×2 (08:47→18:00)
[2018-08-27] MEDS: CHOLECALCIFEROL (VITAMIN D3) 1,000 UNIT TABLET PO SCH (08:48)
[2018-08-27] MEDS: NYSTATIN TOPICAL POWDER 15GM BOTTLE. TP SCH ×2 (08:48→20:40)
[2018-08-27 11:00] VITALS: BP 140/59
--- NOTE | 2018-08-27 11:22 | PDOC ---
PROGRESS NOTES Chief Complaint Chief Complaint Severe dehydration evidenced by hemoconcentration reactive leukocytosis and hypercalcemia Sepsis/SIRS with AK I VMN-lactate 4.1 on admission, down to 2.6 after IV fluid No signs of infection Critical hypokalemia 2.9 AK I VMN-creatinine 2.6-on chlorthalidone at home SNU resident Worsening generalized weakness in the background of dehydration Possible dementia GRade 2 coccyx FULL CODE History of Present Illness History of Present Illness Working with physical therapy-moderate assist so far on day 1 of pT evaluation Labs are much better-hemoconcentration has resolved, leukocytosis is better. Creatinine better 1.5 from 2 Was getting normal saline 1 25 mL an hour Plan: Continue normal saline - this time 100 mL an hour Recheck BMP again tomorrow Avoid nephrotoxins She has stage II coccyx as per wound care-I read their note, turn q2, local wound care as what we are doing Back to SNU on discharge needs to increase OFI Daily PT OT High fall risk FULL CODE Vitals Vitals Vital Signs Date Time Temp Pulse Resp B/P (MAP) Pulse Ox O2 Delivery O2 Flow Rate FiO2 08/27/18 08:00 Nasal Cannula 3.0 08/27/18 07:00 97.8 62 16 116/53 (74) 94 97.8 Physical Exam General: Cooperative, No acute distress, Other (oriented to self and place, calm) Heart: Regular rate, Normal S1, Normal S2 Lungs: Clear Abdomen: Normal bowel sounds, Soft, No tenderness, No hepatosplenomegaly, No masses Extremities: No clubbing, No cyanosis, No edema, Normal pulses, No tenderness/ swelling Skin: Other (senile skin turgor, minimal subcutaneous tissue) Labs LABS Laboratory Tests Test 08/27/18 06:00 08/27/18 06:10 Lactic Acid Level 1.0 mmol/L (0.4-2.0) Sodium Level 144 mmol/L (136-145) Potassium Level 3.5 mmol/L (3.5-5.1) Chloride Level 110 mmol/L (98-107) Carbon Dioxide Level 28 mmol/L (21-32) Anion Gap 6 (6-14) Blood Urea Nitrogen 37 mg/dL (7-20) Creatinine 1.5 mg/dL (0.6-1.0) Estimated GFR (Cockcroft-Gault) 32.9 Glucose Level 85 mg/dL (70-99) Calcium Level 8.2 mg/dL (8.5-10.1) Review of Systems Review of Systems dementia hence limited ROS,. she does appear weak but not in distress Assessment and Plan Assessmemt and Plan Problems Medical Problems: (1) Elevated serum creatinine Status: Acute (2) Skin breakdown Status: Acute (3) Weakness Status: Acute Comment Review of Relevant I have reviewed the following items zeus (where applicable) has been applied. Labs Laboratory Tests Test 08/25/18 16:39 08/25/18 17:15 08/25/18 17:50 08/25/18 21:15 Sodium Level 142 mmol/L (136-145) Potassium Level 2.9 mmol/L (3.5-5.1) Chloride Level 97 mmol/L (98-107) Carbon Dioxide Level 29 mmol/L (21-32) Anion Gap 16 (6-14) Blood Urea Nitrogen 67 mg/dL (7-20) Creatinine 2.6 mg/dL (0.6-1.0) Estimated GFR (Cockcroft-Gault) 17.5 BUN/Creatinine Ratio 26 (6-20) Glucose Level 125 mg/dL (70-99) Calcium Level 9.7 mg/dL (8.5-10.1) Total Bilirubin 1.5 mg/dL (0.2-1.0) Aspartate Amino Transf (AST/SGOT) 33 U/L (15-37) Alanine Aminotransferase (ALT/SGPT) 26 U/L (14-59) Alkaline Phosphatase 143 U/L (46-116) Total Protein 8.6 g/dL (6.4-8.2) Albumin 2.9 g/dL (3.4-5.0) Albumin/Globulin Ratio 0.5 (1.0-1.7) White Blood Count 12.5 x10^3/uL (4.0-11.0) Red Blood Count 5.44 x10^6/uL (3.50-5.40) Hemoglobin 16.0 g/dL (12.0-15.5) Hematocrit 48.0 % (36.0-47.0) Mean Corpuscular Volume 88 fL (79-100) Mean Corpuscular Hemoglobin 29 pg (25-35) Mean Corpuscular Hemoglobin Concent 33 g/dL (31-37) Red Cell Distribution Width 14.9 % (11.5-14.5) Platelet Count 170 x10^3/uL (140-400) Neutrophils (%) (Auto) 84 % (31-73) Lymphocytes (%) (Auto) 9 % (24-48) Monocytes (%) (Auto) 7 % (0-9) Eosinophils (%) (Auto) 0 % (0-3) Basophils (%) (Auto) 0 % (0-3) Neutrophils # (Auto) 10.4 x10^3uL (1.8-7.7) Lymphocytes # (Auto) 1.1 x10^3/uL (1.0-4.8) Monocytes # (Auto) 0.9 x10^3/uL (0.0-1.1) Eosinophils # (Auto) 0.0 x10^3/uL (0.0-0.7) Basophils # (Auto) 0.0 x10^3/uL (0.0-0.2) Lactic Acid Level 4.1 mmol/L (0.4-2.0) 2.6 mmol/L (0.4-2.0) Troponin I Quantitative 0.021 ng/mL (0.000-0.055) Urine Collection Type U cath Urine Color Yellow Urine Clarity Clear Urine pH 5.0 Urine Specific [place] 1.020 Urine Protein Negative mg/dL (NEG-TRACE) Urine Glucose (UA) Negative mg/dL (NEG) Urine Ketones (Stick) Negative mg/dL (NEG) Urine Blood Negative (NEG) Urine Nitrite Negative (NEG) Urine Bilirubin Negative (NEG) Urine Urobilinogen Dipstick 1.0 mg/dL (0.2 mg/dL) Urine Leukocyte Esterase Negative (NEG) Urine RBC 0 /HPF (0-2) Urine WBC 0 /HPF (0-4) Urine Squamous Epithelial Cells Occ /LPF Urine Amorphous Sediment Present /HPF Urine Bacteria 0 /HPF (0-FEW) Urine Hyaline Casts Few /HPF Urine Granular Casts Occasional /HPF Urine Mucus Slight /LPF Test 08/26/18 09:25 08/26/18 09:35 08/27/18 06:00 08/27/18 06:10 White Blood Count 10.7 x10^3/uL (4.0-11.0) Red Blood Count 4.41 x10^6/uL (3.50-5.40) Hemoglobin 13.4 g/dL (12.0-15.5) Hematocrit 39.6 % (36.0-47.0) Mean Corpuscular Volume 90 fL (79-100) Mean Corpuscular Hemoglobin 30 pg (25-35) Mean Corpuscular Hemoglobin Concent 34 g/dL (31-37) Red Cell Distribution Width 14.6 % (11.5-14.5) Platelet Count 137 x10^3/uL (140-400) Neutrophils (%) (Auto) 80 % (31-73) Lymphocytes (%) (Auto) 14 % (24-48) Monocytes (%) (Auto) 6 % (0-9) Eosinophils (%) (Auto) 1 % (0-3) Basophils (%) (Auto) 0 % (0-3) Neutrophils # (Auto) 8.5 x10^3uL (1.8-7.7) Lymphocytes # (Auto) 1.4 x10^3/uL (1.0-4.8) Monocytes # (Auto) 0.6 x10^3/uL (0.0-1.1) Eosinophils # (Auto) 0.1 x10^3/uL (0.0-0.7) Basophils # (Auto) 0.0 x10^3/uL (0.0-0.2) Erythrocyte Sedimentation Rate 10 (0-25) Sodium Level 146 mmol/L (136-145) 144 mmol/L (136-145) Potassium Level 2.7 mmol/L (3.5-5.1) 3.5 mmol/L (3.5-5.1) Chloride Level 107 mmol/L (98-107) 110 mmol/L (98-107) Carbon Dioxide Level 28 mmol/L (21-32) 28 mmol/L (21-32) Anion Gap 11 (6-14) 6 (6-14) Blood Urea Nitrogen 50 mg/dL (7-20) 37 mg/dL (7-20) Creatinine 2.0 mg/dL (0.6-1.0) 1.5 mg/dL (0.6-1.0) Estimated GFR (Cockcroft-Gault) 23.6 32.9 Glucose Level 110 mg/dL (70-99) 85 mg/dL (70-99) Calcium Level 8.1 mg/dL (8.5-10.1) 8.2 mg/dL (8.5-10.1) Thyroid Stimulating Hormone (TSH) 0.628 uIU/mL (0.358-3.74) Lactic Acid Level 1.0 mmol/L (0.4-2.0) Laboratory Tests Test 08/27/18 06:00 08/27/18 06:10 Lactic Acid Level 1.0 mmol/L (0.4-2.0) Sodium Level 144 mmol/L (136-145) Potassium Level 3.5 mmol/L (3.5-5.1) Chloride Level 110 mmol/L (98-107) Carbon Dioxide Level 28 mmol/L (21-32) Anion Gap 6 (6-14) Blood Urea Nitrogen 37 mg/dL (7-20) Creatinine 1.5 mg/dL (0.6-1.0) Estimated GFR (Cockcroft-Gault) 32.9 Glucose Level 85 mg/dL (70-99) Calcium Level 8.2 mg/dL (8.5-10.1) Microbiology 08/25/18 Blood Culture - Preliminary, Resulted NO GROWTH AFTER 1 DAY Medications Current Medications Sodium Chloride 1,000 ml @ 1,000 mls/hr 1X ONCE IV Last administered on 08/25at 18:13; Start 08/25/18 at 18:00; Stop 08/25/18 at 18:59; Status DC Potassium Chloride (Klor-Con) 40 meq 1X ONCE PO Last administered on at 18:12; Start 08/25/18 at 18:00; Stop 08/25/18 at 18:01; Status DC Azithromycin (Zithromax) 1,000 mg 1X ONCE PO ; Start 08/25/18 at 18:30; Stop 08/25/18 at 18:31; Status UNV Ceftriaxone Sodium (Rocephin) 1 gm 1X ONCE IVP Last administered on at 19:06; Start 08/25/18 at 18:30; Stop 08/25/18 at 18:31; Status DC Vancomycin HCl (Vanco Per Pharmacy) 1 each PRN DAILY PRN MC SEE COMMENTS Last administered on 08/25/18at 20:41; Start 08/25/18 at 18:30; Stop 08/26/18 at 08 :01; Status DC Vancomycin HCl 1.5 gm/Sodium Chloride 500 ml @ 250 mls/hr 1X ONCE IV Last administered on 08/25/18at 19:07; Start 08/25/18 at 18:45; Stop 08/25/18 at 20 :44; Status DC Ondansetron HCl (Zofran) 4 mg 1X ONCE IV Last administered on 08/25/18at 19:06 ; Start 08/25/18 at 18:45; Stop 08/25/18 at 18:46; Status DC Sodium Chloride 1,000 ml @ 1,000 mls/hr 1X ONCE IV Last administered on 08/25at 19:22; Start 08/25/18 at 18:45; Stop 08/25/18 at 19:44; Status DC Fentanyl Citrate (Fentanyl 2ml Vial) 50 mcg 1X ONCE IV Last administered on at 19:06; Start 08/25/18 at 19:00; Stop 08/25/18 at 19:01; Status DC Ondansetron HCl (Zofran) 4 mg PRN Q8HRS PRN IV NAUSEA/VOMITING; Start at 19:00; Stop 08/26/18 at 08:01; Status DC Fentanyl Citrate (Fentanyl 2ml Vial) 50 mcg PRN Q1HR PRN IV PAIN; Start at 19:00; Stop 08/26/18 at 18:59; Status DC Sodium Chloride 1,000 ml @ 125 mls/hr Q8H IV Last administered on 08/26/18at 12:46; Start 08/25/18 at 18:47; Stop 08/26/18 at 18:46; Status DC Acetaminophen (Tylenol) 650 mg PRN Q4HRS PRN PO FEVER Last administered on at 09:05; Start 08/25/18 at 19:00; Stop 08/26/18 at 18:59; Status DC Vancomycin HCl (Vancomycin Random Level) 1 each 1X ONCE MC ; Start 08/27/18 at 19:00; Stop 08/27/18 at 19:01; Status Cancel Influenza Virus Vaccine (Afluria Trivalent [id number] Syringe) 0.5 ml ONCE ONCE VAX IM Last administered on 08/26/18at 12:49; Start 08/25/18 at 22:00; Stop 08/25/18 at 22:01; Status DC Ondansetron HCl (Zofran) 4 mg PRN Q6HRS PRN IV NAUSEA/VOMITING; Start at 08:15 Vitamin D (Vitamin D3) 3,000 unit DAILY PO Last administered on 08/27/18at 08: 48; Start 08/26/18 at 09:00 Potassium Chloride (Klor-Con) 40 meq 1X ONCE PO Last administered on at 09:05; Start 08/26/18 at 09:00; Stop 08/26/18 at 09:01; Status DC Potassium Chloride (Klor-Con) 40 meq DAILYWBKFT PO ; Start 08/27/18 at 08:00; Stop 08/27/18 at 08:00; Status DC Potassium Chloride (Klor-Con) 40 meq BIDWMEALS PO Last administered on at 08:47; Start 08/26/18 at 17:00 Nystatin (Nystop) 1 americo BID TP Last administered on 08/27/18at 08:48; Start at 14:30 Vitamin A/Vitamin D (Vitamin A & D Ointment) 1 americo PRN BID PRN TP SKIN PROTECTION; Start 08/26/18 at 14:15 Active Scripts Active Reported Doxycycline Hyclate 100 Mg Capsule 1 Cap PO BID Chlorthalidone (Chlorthalidone) 25 Mg Tablet 25 Mg PO DAILY Furosemide 20 Mg Tablet 20 Mg PO DAILY Potassium Chloride 10 Meq Tab.sr.24h 10 Meq PO DAILY Vitamin D3 (Cholecalciferol (Vitamin D3)) 1,000 Unit Tablet 3,000 Unit PO DAILY Vitals/I & O Vital Sign - Last 24 Hours 08/26/18 08/26/18 08/26/18 08/26/18 15:20 19:53 20:00 23:11 Temp 97.8 97.7 97.5 97.8 97.7 97.5 Pulse 58 61 60 Resp 18 16 16 B/P (MAP) 111/50 (70) 107/55 (72) 113/83 (93) Pulse Ox 100 100 100 O2 Delivery Nasal Cannula Nasal Cannula Nasal Cannula Nasal Cannula O2 Flow Rate 3.0 3.0 3.0 08/27/18 08/27/18 08/27/18 03:13 07:00 08:00 Temp 97.4 97.8 97.4 97.8 Pulse 64 62 Resp 20 16 B/P (MAP) 113/55 (74) 116/53 (74) Pulse Ox 100 94 O2 Delivery Nasal Cannula Nasal Cannula Nasal Cannula O2 Flow Rate 3.0 3.0 3.0 Intake and Output 08/26/18 08/26/18 08/27/18 15:01 23:01 07:01 Intake Total 100 ml 100 ml 50 ml Output Total 3 ml Balance 100 ml 100 ml 47 ml Nutrition Consultation Dietary Evaluation: Recommendations by RD: Increase Calorie Intake, Protein supplementation Comments: diet change and food preferences taken to help with po intake added ensure enlive and ensure pudding bid rec mvi q day, vit c 500 mg q day per wound protocal Expected Outcomes/Goals: to meet > 50% est nutr needs Interpretation of weight loss: >5% in 1 month Malnutrition Findings: Food and Nutrition Intake (Sev: <50% est energy req 5days Weight Status: Overweight MAXX MANRIQUEZ MD Aug 27, 2018 11:22
[2018-08-27] MEDS: IV NORMAL SALINE 1000ML BAG 1,000 ML IV SCH ×2 (11:47→20:41)
[2018-08-27 15:00] VITALS: BP 131/64
--- NOTE | 2018-08-27 15:24 | PDOC ---
SUBJECTIVE ROS Follow-up of acute renal failure Patient denies any new complaints. Nurse reports continued diarrhea Unable to obtain review of systems from patient due to presumed underlying dementia OBJECTIVE Vital Signs Vital Signs Date Time Temp Pulse Resp B/P (MAP) Pulse Ox O2 Delivery O2 Flow Rate FiO2 08/27/18 11:00 97.9 73 16 140/59 (86) 99 Nasal Cannula 3.0 97.9 I & 0 Intake and Output 08/27/18 07:01 Intake Total 250 ml Output Total 3 ml Balance 247 ml Intake Oral 250 ml Output Urine Total 3 ml # Voids 4 PHYSICAL EXAM Physical Exam GEN: Awake, Oriented x 0- ?, In NO distress EYES: Vision Unchanged, Conjunctiva Normal EN: No EN Drainage, Mucous Membranes MOIST NECK: no JVD, no JVP, Supple, no Thyromegaly CVS: S1S2, ? Murmur, No Gallop, No Rub,no Edema RESP: no Rales, no Rhonchi,no Acc. Muscle Use GI: BS + ve, NO Bruit, Non Tender, Non Distended : no CVA tenderness, no Suprapubic Tenderness DIAGNOSIS/ASSESSMENT Assessment & Plan Acute kidney injury: Presumed dehydration. This appears to have resolved now Dehydration: Continue IV fluids with ongoing diarrhea Hyper natremia: Now resolved Lactic acidemia now resolved Low potassium: Now replaced We will be available if needed please call with questions or concerns COMMENT/RELEVANT DATA Meds Current Medications Medications (Trade) Dose Ordered Sig/Edwin Start Time Stop Time Status Last Admin Dose Admin Acetaminophen (Tylenol) 650 mg PRN Q4HRS PRN 08/25/18 19:00 08/26/18 18:59 DC 08/26/18 09:05 650 MG Azithromycin (Zithromax) 1,000 mg 1X ONCE 08/25/18 18:30 08/25/18 18:31 UNV Ceftriaxone Sodium (Rocephin) 1 gm 1X ONCE 08/25/18 18:30 08/25/18 18:31 DC 08/25/18 19:06 1 GM Fentanyl Citrate (Fentanyl 2ml Vial) 50 mcg PRN Q1HR PRN 08/25/18 19:00 08/26/18 18:59 DC Influenza Virus Vaccine (Afluria Trivalent [id number] Syringe) 0.5 ml ONCE ONCE 08/25/18 22:00 08/25/18 22:01 DC 08/26/18 12:49 0.5 ML Nystatin (Nystop) 1 americo BID 08/26/18 14:30 08/27/18 08:48 1 AMERICO Ondansetron HCl (Zofran) 4 mg PRN Q6HRS PRN 08/26/18 08:15 Potassium Chloride (Klor-Con) 40 meq BIDWMEALS 08/26/18 17:00 08/27/18 08:47 40 MEQ Sodium Chloride 1,000 ml @ 100 mls/hr Q10H 08/27/18 11:30 08/27/18 11:47 100 MLS/HR Vancomycin HCl (Vanco Per Pharmacy) 1 each PRN DAILY PRN 08/25/18 18:30 08/26/18 08:01 DC 08/25/18 20:41 1 EACH Vancomycin HCl (Vancomycin Random Level) 1 each 1X ONCE 08/27/18 19:00 08/27/18 19:01 Cancel Vancomycin HCl 1.5 gm/Sodium Chloride 500 ml @ 250 mls/hr 1X ONCE 08/25/18 18:45 08/25/18 20:44 DC 08/25/18 19:07 250 MLS/HR Vitamin A/Vitamin D (Vitamin A & D Ointment) 1 americo PRN BID PRN 08/26/18 14:15 Vitamin D (Vitamin D3) 3,000 unit DAILY 08/26/18 09:00 08/27/18 08:48 3,000 UNIT Lab Laboratory Tests Test 08/27/18 06:00 08/27/18 06:10 Lactic Acid Level 1.0 mmol/L (0.4-2.0) Sodium Level 144 mmol/L (136-145) Potassium Level 3.5 mmol/L (3.5-5.1) Chloride Level 110 mmol/L (98-107) Carbon Dioxide Level 28 mmol/L (21-32) Anion Gap 6 (6-14) Blood Urea Nitrogen 37 mg/dL (7-20) Creatinine 1.5 mg/dL (0.6-1.0) Estimated GFR (Cockcroft-Gault) 32.9 Glucose Level 85 mg/dL (70-99) Calcium Level 8.2 mg/dL (8.5-10.1) Results All relevant outside records, renal labs, imaging studies, telemetry/EKG's were reviewed. JOYCELYN ROSADO MD Aug 27, 2018 15:24
[2018-08-27] MEDS ORDERED: MAGNESIUM SULFATE 2GM 50 ML IV PRN (15:30)
[2018-08-27] MEDS ORDERED: VANCOMYCIN RANDOM LEVEL. MC ONE (19:00)
[2018-08-27 19:20] VITALS: BP 129/54
[2018-08-27 23:48] VITALS: BP 110/59
[2018-08-28 03:52] VITALS: BP 106/57
[2018-08-28 07:00] VITALS: BP 99/49
[2018-08-28] MEDS: POTASSIUM CHLORIDE 20 MEQ TABLET.ER. PO SCH ×2 (09:28→17:22)
[2018-08-28 11:00] VITALS: BP 103/48
[2018-08-28 11:08] LABS: CALCIUM 8.1 mg/dL (8.5-10.1); CREATININE 1.4 mg/dL (0.6-1.0); GFR 35.7; POTASSIUM 4.1 mmol/L (3.5-5.1)
[2018-08-28] MEDS: IV NORMAL SALINE 1000ML BAG 1,000 ML IV SCH ×2 (11:46→22:12)
--- NOTE | 2018-08-28 11:49 | PDOC ---
PROGRESS NOTES Chief Complaint Chief Complaint Severe dehydration evidenced by hemoconcentration reactive leukocytosis and hypercalcemia - GETTING BETTER Sepsis/SIRS with AK I VMN-lactate 4.1 on admission, down to 2.6 after IV fluid No signs of infection Critical hypokalemia 2.9 BETTER/RESOLVED GEN WEAKNESS - I recommend SNU AK I VMN-creatinine 2.6-on chlorthalidone at home Worsening generalized weakness in the background of dehydration Possible dementia GRade 2 coccyx FULL CODE History of Present Illness History of Present Illness Labs are much better after 24-48 hours of IV hydration. 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-I do recommended SNU if family/pt agreeable Full code Avoid nephrotoxins Recheck labs tomorrow, we'll continue IV hydration as poor by mouth intake, and electrolytes have just improved Vitals Vitals Vital Signs Date Time Temp Pulse Resp B/P (MAP) Pulse Ox O2 Delivery O2 Flow Rate FiO2 08/28/18 07:00 97.8 58 16 99/49 (66) 98 Nasal Cannula 1.5 97.8 Physical Exam General: Oriented X3, Cooperative, No acute distress, Other (oriented to self and place, calm, weak) Heart: Regular rate, Normal S1, Normal S2 Lungs: Clear Abdomen: Normal bowel sounds, Soft, No tenderness, No hepatosplenomegaly, No masses Extremities: No clubbing, No cyanosis, No edema, Normal pulses, No tenderness/ swelling Skin: Other (senile skin turgor, minimal subcutaneous tissue) Labs LABS Laboratory Tests Test 08/28/18 09:50 Sodium Level 145 mmol/L (136-145) Potassium Level 4.1 mmol/L (3.5-5.1) Chloride Level 111 mmol/L (98-107) Carbon Dioxide Level 24 mmol/L (21-32) Anion Gap 10 (6-14) Blood Urea Nitrogen 27 mg/dL (7-20) Creatinine 1.4 mg/dL (0.6-1.0) Estimated GFR (Cockcroft-Gault) 35.7 Glucose Level 153 mg/dL (70-99) Calcium Level 8.1 mg/dL (8.5-10.1) Magnesium Level 1.8 mg/dL (1.8-2.4) Review of Systems Review of Systems Weak, but otherwise the rest of ROS 14 point negative Assessment and Plan Assessmemt and Plan Problems Medical Problems: (1) Elevated serum creatinine Status: Acute (2) Skin breakdown Status: Acute (3) Weakness Status: Acute Comment Review of Relevant I have reviewed the following items zeus (where applicable) has been applied. Labs Laboratory Tests Test 08/27/18 06:00 08/27/18 06:10 08/28/18 09:50 Lactic Acid Level 1.0 mmol/L (0.4-2.0) Sodium Level 144 mmol/L (136-145) 145 mmol/L (136-145) Potassium Level 3.5 mmol/L (3.5-5.1) 4.1 mmol/L (3.5-5.1) Chloride Level 110 mmol/L (98-107) 111 mmol/L (98-107) Carbon Dioxide Level 28 mmol/L (21-32) 24 mmol/L (21-32) Anion Gap 6 (6-14) 10 (6-14) Blood Urea Nitrogen 37 mg/dL (7-20) 27 mg/dL (7-20) Creatinine 1.5 mg/dL (0.6-1.0) 1.4 mg/dL (0.6-1.0) Estimated GFR (Cockcroft-Gault) 32.9 35.7 Glucose Level 85 mg/dL (70-99) 153 mg/dL (70-99) Calcium Level 8.2 mg/dL (8.5-10.1) 8.1 mg/dL (8.5-10.1) Magnesium Level 1.8 mg/dL (1.8-2.4) Laboratory Tests Test 08/28/18 09:50 Sodium Level 145 mmol/L (136-145) Potassium Level 4.1 mmol/L (3.5-5.1) Chloride Level 111 mmol/L (98-107) Carbon Dioxide Level 24 mmol/L (21-32) Anion Gap 10 (6-14) Blood Urea Nitrogen 27 mg/dL (7-20) Creatinine 1.4 mg/dL (0.6-1.0) Estimated GFR (Cockcroft-Gault) 35.7 Glucose Level 153 mg/dL (70-99) Calcium Level 8.1 mg/dL (8.5-10.1) Magnesium Level 1.8 mg/dL (1.8-2.4) Microbiology 08/25/18 Blood Culture - Preliminary, Resulted NO GROWTH AFTER 2 DAYS Medications Current Medications Sodium Chloride 1,000 ml @ 1,000 mls/hr 1X ONCE IV Last administered on 08/25 18:13; Start 08/25/18 at 18:00; Stop 08/25/18 at 18:59; Status DC Potassium Chloride (Klor-Con) 40 meq 1X ONCE PO Last administered on 18:12; Start 08/25/18 at 18:00; Stop 08/25/18 at 18:01; Status DC Azithromycin (Zithromax) 1,000 mg 1X ONCE PO ; Start 08/25/18 at 18:30; Stop 08/25/18 at 18:31; Status UNV Ceftriaxone Sodium (Rocephin) 1 gm 1X ONCE IVP Last administered on at 19:06; Start 08/25/18 at 18:30; Stop 08/25/18 at 18:31; Status DC Vancomycin HCl (Vanco Per Pharmacy) 1 each PRN DAILY PRN MC SEE COMMENTS Last administered on 08/25/18at 20:41; Start 08/25/18 at 18:30; Stop 08/26/18 at 08 :01; Status DC Vancomycin HCl 1.5 gm/Sodium Chloride 500 ml @ 250 mls/hr 1X ONCE IV Last administered on 08/25/18 19:07; Start 08/25/18 at 18:45; Stop 08/25/18 at 20 :44; Status DC Ondansetron HCl (Zofran) 4 mg 1X ONCE IV Last administered on 08/25/18 19:06 ; Start 08/25/18 at 18:45; Stop 08/25/18 at 18:46; Status DC Sodium Chloride 1,000 ml @ 1,000 mls/hr 1X ONCE IV Last administered on 08/25 19:22; Start 08/25/18 at 18:45; Stop 08/25/18 at 19:44; Status DC Fentanyl Citrate (Fentanyl 2ml Vial) 50 mcg 1X ONCE IV Last administered on 19:06; Start 08/25/18 at 19:00; Stop 08/25/18 at 19:01; Status DC Ondansetron HCl (Zofran) 4 mg PRN Q8HRS PRN IV NAUSEA/VOMITING; Start at 19:00; Stop 08/26/18 at 08:01; Status DC Fentanyl Citrate (Fentanyl 2ml Vial) 50 mcg PRN Q1HR PRN IV PAIN; Start at 19:00; Stop 08/26/18 at 18:59; Status DC Sodium Chloride 1,000 ml @ 125 mls/hr Q8H IV Last administered on 08/26/18at 12:46; Start 08/25/18 at 18:47; Stop 08/26/18 at 18:46; Status DC Acetaminophen (Tylenol) 650 mg PRN Q4HRS PRN PO FEVER Last administered on at 09:05; Start 08/25/18 at 19:00; Stop 08/26/18 at 18:59; Status DC Vancomycin HCl (Vancomycin Random Level) 1 each 1X ONCE MC ; Start 08/27/18 at 19:00; Stop 08/27/18 at 19:01; Status Cancel Influenza Virus Vaccine (Afluria Trivalent [id number] Syringe) 0.5 ml ONCE ONCE VAX IM Last administered on 08/26/18at 12:49; Start 08/25/18 at 22:00; Stop 08/25/18 at 22:01; Status DC Ondansetron HCl (Zofran) 4 mg PRN Q6HRS PRN IV NAUSEA/VOMITING; Start at 08:15 Vitamin D (Vitamin D3) 3,000 unit DAILY PO Last administered on 08/27/18at 08: 48; Start 08/26/18 at 09:00 Potassium Chloride (Klor-Con) 40 meq 1X ONCE PO Last administered on at 09:05; Start 08/26/18 at 09:00; Stop 08/26/18 at 09:01; Status DC Potassium Chloride (Klor-Con) 40 meq DAILYWBKFT PO ; Start 08/27/18 at 08:00; Stop 08/27/18 at 08:00; Status DC Potassium Chloride (Klor-Con) 40 meq BIDWMEALS PO Last administered on at 09:28; Start 08/26/18 at 17:00 Nystatin (Nystop) 1 americo BID TP Last administered on 08/27/18at 20:40; Start at 14:30 Vitamin A/Vitamin D (Vitamin A & D Ointment) 1 americo PRN BID PRN TP SKIN PROTECTION; Start 08/26/18 at 14:15 Sodium Chloride 1,000 ml @ 80 mls/hr [id number] IV Last administered on at 11:46; Start 08/27/18 at 11:30 Magnesium Sulfate 50 ml @ 25 mls/hr PRN DAILY PRN IV for Mag < 1.7 on am labs; Start 08/27/18 at 15:30 Active Scripts Active Reported Doxycycline Hyclate 100 Mg Capsule 1 Cap PO BID Chlorthalidone (Chlorthalidone) 25 Mg Tablet 25 Mg PO DAILY Furosemide 20 Mg Tablet 20 Mg PO DAILY Potassium Chloride 10 Meq Tab.sr.24h 10 Meq PO DAILY Vitamin D3 (Cholecalciferol (Vitamin D3)) 1,000 Unit Tablet 3,000 Unit PO DAILY Vitals/I & O Vital Sign - Last 24 Hours 08/27/18 08/27/18 08/27/18 08/27/18 15:00 19:20 20:00 23:48 Temp 98.3 98.4 98.3 98.3 98.4 98.3 Pulse 73 67 80 Resp 16 18 18 B/P (MAP) 131/64 (86) 129/54 (79) 110/59 (76) Pulse Ox 99 98 97 O2 Delivery Nasal Cannula Nasal Cannula Nasal Cannula Nasal Cannula O2 Flow Rate 3.0 3.0 2.0 3.0 08/28/18 08/28/18 03:52 07:00 Temp 98.0 97.8 98.0 97.8 Pulse 72 58 Resp 18 16 B/P (MAP) 106/57 (73) 99/49 (66) Pulse Ox 95 98 O2 Delivery Nasal Cannula Nasal Cannula O2 Flow Rate 3.0 1.5 Intake and Output 08/27/18 08/27/18 08/28/18 15:01 23:01 07:01 Intake Total 100 ml 100 ml Output Total 200 ml Balance -100 ml 100 ml Nutrition Consultation Dietary Evaluation: Recommendations by RD: Increase Calorie Intake, Protein supplementation Comments: diet change and food preferences taken to help with po intake added ensure enlive and ensure pudding bid rec mvi q day, vit c 500 mg q day per wound protocal Expected Outcomes/Goals: to meet > 50% est nutr needs Interpretation of weight loss: >5% in 1 month Malnutrition Findings: Food and Nutrition Intake (Sev: <50% est energy req 5days Weight Status: Overweight MAXX MANRIQUEZ MD Aug 28, 2018 11:49
[2018-08-28] MEDS: CHOLECALCIFEROL (VITAMIN D3) 1,000 UNIT TABLET PO SCH (11:54)
[2018-08-28 15:00] VITALS: BP 112/49
[2018-08-28] MEDS: NYSTATIN TOPICAL POWDER 15GM BOTTLE. TP SCH ×2 (16:45→22:11)
[2018-08-28 19:59] VITALS: BP 124/57
[2018-08-28 23:20] VITALS: BP 124/63
[2018-08-29] MEDS: IV NORMAL SALINE 1000ML BAG 1,000 ML IV SCH ×2 (02:37→19:51)
[2018-08-29 03:59] VITALS: BP 115/42
[2018-08-29 06:45] LABS: CALCIUM 8.5 mg/dL (8.5-10.1); CREATININE 1.3 mg/dL (0.6-1.0); GFR 38.8; POTASSIUM 5.1 mmol/L (3.5-5.1)
[2018-08-29 07:22] VITALS: BP 143/58
[2018-08-29] MEDS: POTASSIUM CHLORIDE 20 MEQ TABLET.ER. PO SCH (07:22)
--- NOTE | 2018-08-29 08:31 | NUR ---
SW following pt. Pt does not have PT needs and OT recommends home health. Due to this, pt does not qualify for [facility] evaluation. Pt has 24 hour care at home and has a good support system with her family. SW will arrange home health upon dc.
[2018-08-29] MEDS: NYSTATIN TOPICAL POWDER 15GM BOTTLE. TP SCH ×2 (09:01→19:53)
[2018-08-29] MEDS: CHOLECALCIFEROL (VITAMIN D3) 1,000 UNIT TABLET PO SCH (09:02)
--- NOTE | 2018-08-29 09:13 | NUR ---
Pt transported to dialysis per bed.
--- NOTE | 2018-08-29 09:54 | PDOC ---
PROGRESS NOTES Chief Complaint Chief Complaint Severe dehydration evidenced by hemoconcentration reactive leukocytosis and hypercalcemia - Sepsis/SIRS with AK I VMN-lactate 4.1 on admission, down to 2.6 after IV fluid poor oral intake Critical hypokalemia 2.9 BETTER/RESOLVED GEN WEAKNESS - recommend SNU/ vs hospice [place] I VMN-creatinine 2.6-on chlorthalidone at home Worsening generalized weakness in the background of dehydration Possible dementia GRade 2 coccyx 3 SUPERFICIAL wounds, small FULL CODE, will consult palliative care History of Present Illness History of Present Illness Labs are much better after 24-48 hours of IV hydration. 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-I do recommended SNU if family/pt agreeable Full code Avoid nephrotoxins Recheck labs tomorrow, we'll continue IV hydration as poor by mouth intake, and electrolytes have just improved Vitals Vitals Vital Signs Date Time Temp Pulse Resp B/P (MAP) Pulse Ox O2 Delivery O2 Flow Rate FiO2 08/29/18 07:22 98.6 75 18 143/58 (86) 93 Room Air 98.6 08/28/18 20:00 1.5 Physical Exam General: Oriented X3, Cooperative, No acute distress, Other (oriented to self and place, calm, weak, poor intake) Heart: Regular rate, Normal S1, Normal S2, No murmurs Lungs: Clear Abdomen: Normal bowel sounds, Soft, No tenderness, No hepatosplenomegaly, No masses Extremities: No clubbing, No cyanosis, No edema, Normal pulses, No tenderness/ swelling Skin: Other (senile skin turgor, minimal subcutaneous tissue sacral pressure wounds) Labs LABS Laboratory Tests Test 08/29/18 05:00 08/29/18 05:10 Sodium Level 144 mmol/L (136-145) Potassium Level 5.1 mmol/L (3.5-5.1) Chloride Level 112 mmol/L (98-107) Carbon Dioxide Level 24 mmol/L (21-32) Anion Gap 8 (6-14) Blood Urea Nitrogen 24 mg/dL (7-20) Creatinine 1.3 mg/dL (0.6-1.0) Estimated GFR (Cockcroft-Gault) 38.8 Glucose Level 73 mg/dL (70-99) Calcium Level 8.5 mg/dL (8.5-10.1) Magnesium Level 1.7 mg/dL (1.8-2.4) Assessment and Plan Assessmemt and Plan Problems Medical Problems: (1) Elevated serum creatinine Status: Acute (2) Skin breakdown Status: Acute (3) Weakness Follows Direction * Simple * Inconsistent Neurological Deficits * None Behavior * Cooperative Safety/Judgement * Tactile Cues Required * Decreased Safety * Cognition Deficit * Verbal Cues Required * Due to Medical Status * Decreased Insight * Due to Strength/ROM Defic Communication * CREEK Vision/Perception * Baseline * Within Functional Limits Vision/Neurological * Within Functional Limits Proprioception * Intact Proprioception Location * Left Upper Extremity * Right Upper Extremity Sensation * intact Sensation Location * Left Upper Extremity * Right Upper Extremity Tone * Normal Tone Location * Left Upper Extremity * Right Upper Extremity Coordination * Gross motor cood. decr. Activity Tolerance * Poor + Activity Tolerance/ Vitals * BP in supine: 128/62 HR: 70 BP seated on commode: 112/66, HR: 82 Pt able to stand for 2 minutes with roller walker and then take 3-4 small steps. Pt demo'd no signs/symptoms of distress with light activity. Range of Motion * BUE WFL Strength * BUE: 4-/5 Sitting Balance * 2 balances w/ both UEs Standing Balance * 2 balances w/ both UEs Pain Comments * Pt reported that she did not have any pain at this time as she said her wound on her coccyx was doing better. Daughter noted that the wounds on her bottom are worse then when she first acme to hospital. [place] cream applied to skin wounds. Toileting * Verbal cues * Tactile cues * Seated * Maximum assist * Standing Toileting Comments * MaxA in clothing management and hygiene to periarea Toilet/Commode Transfers * Verbal cues * Tactile cues * Moderate assist * Seated * Standing Toilet/Commode Transfers Comments * stand pivot transfer to bedside commode Bed Mobilty * Two person assist * Verbal cues * Tactile cues * Moderate assist * Right Side Chair Transfer * Verbal cues * Tactile cues * Moderate assist Functional Mobility * Verbal cues * Tactile cues * Moderate assist Ambulation Assistive Device * Roller Walker Ambulation Distance * 3 feet Functional Mobility Comments * from bedside commode to bedside chair, Max verbal cues Therapeutic Exercise * Discussed discharge planning with family at time of eval with daughter present. Daughter insisted that Pt stay at home with family after D/C from hospital as Pt has a lot of family support. Daughter educated on HH services. Daughter agreeable to HH services to assess safety and increase strength as able. Therapeutic Activity * Pt supine in bed with daughter at bedside upon OT arrival in need of brief change. Pt demo'd bed mobility with ModA x2 with assist to push up to sitting at EOB. Pt SBA to sit at EOB. Pt ModA in stand pivot transfer to bedside commode, pt held onto therapist, Max verbal cues for positioning and hand placement. Pt MaxA in toileting with assist for clothing management and hygiene to shelly area. Pt ModA in sit/stand from commode but able to stand with walker with CGA while therapist did hygiene. Pt demo'd functional mobility to bedside chair with roller walker with ModA and Max cues for walker positioning and hand placement. Pt Dae in sit/stand at bedside chair to reposition hips with use of roller walker. Pt needing max cues and increased time throughout treatment session. Pt left seated in bedside chair with call light in reach and chair alarm activated with daughter helping her spread butter and cut breakfast. RN updated. Functional Limitations ADLs Comments * Betito Index: 20/100 decreased strength, gross coordination, balance, Decreased insight/safety awareness, respiratory status, activity tolerance limiting functional transfers and ADLs Patient Stated Goal * Return home with family Rehab Potential to Achieve Goals * Good Factors Facilitating Goal Achievement * Supportive caregiver * Available resources Problem List * Activity Tolerance * Balance * Functional Mobility * Strength * ADL Status * Hearing * Respiratory Status * Safety awareness * Knowledge-body mechanics * Knowledge-energy conserv. Pt/caregiver agree with plan of care * Yes Patient condition at conclusion of therapy * Pt in chair * Personal alarm on * Call light in reach * PtIn no apparent distress * Pt denies further needs * Visitor with patient Communicated Patient Care With (Name, Title) * Danisha PT, Cristal, OTR/L, Gloria RN Goal 1: Pt will tolerate functional activities for * 20min Goal 1 Position: * Seated * Standing Goal 2: Pt will be able to complete: * bed mobility Goal 2 Required Assistance Level * Contact guard assist * Supine * Seated Goal 3: Pt will be able to complete: * transfers Goal 3 Equipment * Front Wheeled Walker Goal 3 Required Assistance Level * Minimum assist * Seated * Standing Goal 4 - Pt will be able to complete: * toileting Goal 4 Required Assistance Level * Verbal cues * Tactile cues * Minimum assist * Seated * Standing Goal 5 - Pt. will be able to complete: * grooming/hygiene at sink Goal 5 Equipment * Front Wheeled Walker Goal 5 Required Assistance Level * Verbal cues * Stand-by Assist * Seated Skilled interventions required to achieve goals * Activity donna. training * ADL training/education * Balance training for ADL * Body mechanics training * Caregiver training * Compensatory techniques * Coordination training/ed. * Discharge planning * Energy conservation * Functional mobility train * Safety education * Therapeutic Ex. * Transfer training for ADL Number of Days/Weeks for length of Stay, or Until Goals Met * 6x/week for 2 weeks Discharge Recommendations * Home with Home Health Discharge Recommendation Comments * Ongoing equipment assess Status: Acute * 35' Ambulation Comments * assisted pt into bathroom. No LOB. Other Information * Pt left up in bathroom with pull cord within reach. RN aware. Pt is at baseline for home PLOF. Safe to d/c home with 24 hour care of family. Transfers Bed To Chair For KU Functional Outcomes Tool * Supervision Gait Walking On Level Surfaces * Supervision Walking Distances For KU Functional Tool * 31'-50' Number of KU Functional Outcomes Tool Questions Answered * 3 KU Functional Outcomes Tool Score * 4.0 Testing considered to assess G code/modifier * KU Functional Outcomes Clinical Presentation * Stable Evaluation Complexity Level * Low Complexity Pt/caregiver agrees with plan of care/goals * Decreased Mentation Patient condition at conclusion of therapy * Call light in reach * PtIn no apparent distress * Pt denies further needs Communicated Patient Care With (Name, Title) * MALKA Castro No Further Skilled P.T. Intervention Required * Eval only-No PT Needs Discharge Recommendations * Home with 24hr care Comment Review of Relevant I have reviewed the following items zeus (where applicable) has been applied. Labs Laboratory Tests Test 08/27/18 14:45 08/28/18 09:50 08/29/18 05:00 08/29/18 05:10 Clostridium difficile Toxin B Gene Negative (Negative) Sodium Level 145 mmol/L (136-145) 144 mmol/L (136-145) Potassium Level 4.1 mmol/L (3.5-5.1) 5.1 mmol/L (3.5-5.1) Chloride Level 111 mmol/L (98-107) 112 mmol/L (98-107) Carbon Dioxide Level 24 mmol/L (21-32) 24 mmol/L (21-32) Anion Gap 10 (6-14) 8 (6-14) Blood Urea Nitrogen 27 mg/dL (7-20) 24 mg/dL (7-20) Creatinine 1.4 mg/dL (0.6-1.0) 1.3 mg/dL (0.6-1.0) Estimated GFR (Cockcroft-Gault) 35.7 38.8 Glucose Level 153 mg/dL (70-99) 73 mg/dL (70-99) Calcium Level 8.1 mg/dL (8.5-10.1) 8.5 mg/dL (8.5-10.1) Magnesium Level 1.8 mg/dL (1.8-2.4) 1.7 mg/dL (1.8-2.4) Laboratory Tests Test 08/29/18 05:00 08/29/18 05:10 Sodium Level 144 mmol/L (136-145) Potassium Level 5.1 mmol/L (3.5-5.1) Chloride Level 112 mmol/L (98-107) Carbon Dioxide Level 24 mmol/L (21-32) Anion Gap 8 (6-14) Blood Urea Nitrogen 24 mg/dL (7-20) Creatinine 1.3 mg/dL (0.6-1.0) Estimated GFR (Cockcroft-Gault) 38.8 Glucose Level 73 mg/dL (70-99) Calcium Level 8.5 mg/dL (8.5-10.1) Magnesium Level 1.7 mg/dL (1.8-2.4) Microbiology 08/25/18 Blood Culture - Preliminary, Resulted NO GROWTH AFTER 3 DAYS Medications Current Medications Sodium Chloride 1,000 ml @ 1,000 mls/hr 1X ONCE IV Last administered on 08/25at 18:13; Start 08/25/18 at 18:00; Stop 08/25/18 at 18:59; Status DC Potassium Chloride (Klor-Con) 40 meq 1X ONCE PO Last administered on at 18:12; Start 08/25/18 at 18:00; Stop 08/25/18 at 18:01; Status DC Azithromycin (Zithromax) 1,000 mg 1X ONCE PO ; Start 08/25/18 at 18:30; Stop 08/25/18 at 18:31; Status UNV Ceftriaxone Sodium (Rocephin) 1 gm 1X ONCE IVP Last administered on at 19:06; Start 08/25/18 at 18:30; Stop 08/25/18 at 18:31; Status DC Vancomycin HCl (Vanco Per Pharmacy) 1 each PRN DAILY PRN MC SEE COMMENTS Last administered on 08/25/18at 20:41; Start 08/25/18 at 18:30; Stop 08/26/18 at 08 :01; Status DC Vancomycin HCl 1.5 gm/Sodium Chloride 500 ml @ 250 mls/hr 1X ONCE IV Last administered on 08/25/18at 19:07; Start 08/25/18 at 18:45; Stop 08/25/18 at 20 :44; Status DC Ondansetron HCl (Zofran) 4 mg 1X ONCE IV Last administered on 08/25/18at 19:06 ; Start 08/25/18 at 18:45; Stop 08/25/18 at 18:46; Status DC Sodium Chloride 1,000 ml @ 1,000 mls/hr 1X ONCE IV Last administered on 08/25at 19:22; Start 08/25/18 at 18:45; Stop 08/25/18 at 19:44; Status DC Fentanyl Citrate (Fentanyl 2ml Vial) 50 mcg 1X ONCE IV Last administered on at 19:06; Start 08/25/18 at 19:00; Stop 08/25/18 at 19:01; Status DC Ondansetron HCl (Zofran) 4 mg PRN Q8HRS PRN IV NAUSEA/VOMITING; Start at 19:00; Stop 08/26/18 at 08:01; Status DC Fentanyl Citrate (Fentanyl 2ml Vial) 50 mcg PRN Q1HR PRN IV PAIN; Start at 19:00; Stop 08/26/18 at 18:59; Status DC Sodium Chloride 1,000 ml @ 125 mls/hr Q8H IV Last administered on 08/26/18at 12:46; Start 08/25/18 at 18:47; Stop 08/26/18 at 18:46; Status DC Acetaminophen (Tylenol) 650 mg PRN Q4HRS PRN PO FEVER Last administered on at 09:05; Start 08/25/18 at 19:00; Stop 08/26/18 at 18:59; Status DC Vancomycin HCl (Vancomycin Random Level) 1 each 1X ONCE MC ; Start 08/27/18 at 19:00; Stop 08/27/18 at 19:01; Status Cancel Influenza Virus Vaccine (Afluria Trivalent [id number] Syringe) 0.5 ml ONCE ONCE VAX IM Last administered on 08/26/18at 12:49; Start 08/25/18 at 22:00; Stop 08/25/18 at 22:01; Status DC Ondansetron HCl (Zofran) 4 mg PRN Q6HRS PRN IV NAUSEA/VOMITING; Start at 08:15 Vitamin D (Vitamin D3) 3,000 unit DAILY PO Last administered on 08/29/18at 09: 02; Start 08/26/18 at 09:00 Potassium Chloride (Klor-Con) 40 meq 1X ONCE PO Last administered on at 09:05; Start 08/26/18 at 09:00; Stop 08/26/18 at 09:01; Status DC Potassium Chloride (Klor-Con) 40 meq DAILYWBKFT PO ; Start 08/27/18 at 08:00; Stop 08/27/18 at 08:00; Status DC Potassium Chloride (Klor-Con) 40 meq BIDWMEALS PO Last administered on at 17:22; Start 08/26/18 at 17:00 Nystatin (Nystop) 1 americo BID TP Last administered on 08/29/18at 09:01; Start at 14:30 Vitamin A/Vitamin D (Vitamin A & D Ointment) 1 americo PRN BID PRN TP SKIN PROTECTION; Start 08/26/18 at 14:15 Sodium Chloride 1,000 ml @ 80 mls/hr [id number] IV Last administered on at 02:37; Start 08/27/18 at 11:30 Magnesium Sulfate 50 ml @ 25 mls/hr PRN DAILY PRN IV for Mag < 1.7 on am labs; Start 08/27/18 at 15:30 Active Scripts Active Reported Doxycycline Hyclate 100 Mg Capsule 1 Cap PO BID Chlorthalidone (Chlorthalidone) 25 Mg Tablet 25 Mg PO DAILY Furosemide 20 Mg Tablet 20 Mg PO DAILY Potassium Chloride 10 Meq Tab.sr.24h 10 Meq PO DAILY Vitamin D3 (Cholecalciferol (Vitamin D3)) 1,000 Unit Tablet 3,000 Unit PO DAILY Vitals/I & O Vital Sign - Last 24 Hours 08/28/18 08/28/18 08/28/18 08/28/18 11:00 15:00 19:59 20:00 Temp 97.9 98.3 98.4 97.9 98.3 98.4 Pulse 65 64 76 Resp 16 16 18 B/P (MAP) 103/48 (66) 112/49 (70) 124/57 (79) Pulse Ox 98 96 92 O2 Delivery Room Air Room Air Room Air Nasal Cannula O2 Flow Rate 1.5 08/28/18 08/28/18 08/29/18 08/29/18 23:20 23:55 03:59 07:22 Temp 97.4 97.9 98.6 97.4 97.9 98.6 Pulse 80 65 75 Resp 18 18 18 B/P (MAP) 124/63 (83) 115/42 (66) 143/58 (86) Pulse Ox 93 92 93 O2 Delivery Room Air Room Air Room Air Room Air Intake and Output 08/28/18 08/28/18 08/29/18 15:01 23:01 07:01 Intake Total 100 ml 100 ml 50 ml Balance 100 ml 100 ml 50 ml Nutrition Consultation Dietary Evaluation: Recommendations by RD: Increase Calorie Intake, Protein supplementation Comments: diet change and food preferences taken to help with po intake added ensure enlive and ensure pudding bid rec mvi q day, vit c 500 mg q day per wound protocal Expected Outcomes/Goals: to meet > 50% est nutr needs Interpretation of weight loss: >5% in 1 month Malnutrition Findings: Food and Nutrition Intake (Sev: <50% est energy req 5days Weight Status: Overweight LYNETTE RAMOS MD Aug 29, 2018 09:54
[2018-08-29 11:16] VITALS: BP 109/44
--- NOTE | 2018-08-29 13:06 | NUR ---
Pt returned from dialysis. Tolerated well. Received report. 1.5kg removed. BP 102/62 T 98.5 BS 122. Pt more alert today. Scheduled pain meds and muscle relaxers held today if pt was denying pain or discomfort.
[2018-08-29 15:21] VITALS: BP 121/36
--- NOTE | 2018-08-29 17:45 | PDOC2 ---
PALLIATIVE CARE Palliative Care Note Palliative Care Consult requested by Dr. Pereyra to address goals of care/poor po intake Medical Assessment per medical record. 1) Elevated serum creatinine (2) Skin breakdown (3) Weakness Attempted to reach daughter Neelima to arrange family meeting Wednesday at 1030. Message to return call. FABIO RITTER Aug 29, 2018 17:45
--- NOTE | 2018-08-29 17:48 | NUR ---
Previous 2 nursing notes entered on wrong patient. Pt is not on dialysis.
[2018-08-29 19:00] VITALS: BP 121/55
[2018-08-29 23:00] VITALS: BP 118/57
[2018-08-30 02:57] VITALS: BP 119/56
[2018-08-30 07:00] VITALS: BP 133/70
[2018-08-30] MEDS: POTASSIUM CHLORIDE 20 MEQ TABLET.ER. PO SCH ×2 (08:00→17:00)
[2018-08-30] MEDS: NYSTATIN TOPICAL POWDER 15GM BOTTLE. TP SCH ×2 (09:27→21:00)
[2018-08-30] MEDS: CHOLECALCIFEROL (VITAMIN D3) 1,000 UNIT TABLET PO SCH (09:28)
--- NOTE | 2018-08-30 10:21 | PDOC ---
PROGRESS NOTES Chief Complaint Chief Complaint Severe dehydration evidenced by hemoconcentration reactive leukocytosis and hypercalcemia - Sepsis/SIRS with [place] I VMN-lactate 4.1 on admission, down to 2.6 after IV fluid poor oral intake Critical hypokalemia 2.9 BETTER/RESOLVED GEN WEAKNESS - recommend SNU/ vs hospice [place] I VMN-creatinine 2.6-on chlorthalidone at home Worsening generalized weakness in the background of dehydration Possible dementia GRade 2 coccyx 3 SUPERFICIAL wounds, small FULL CODE, will consult palliative care History of Present Illness History of Present Illness Labs are much better after 24-48 hours of IV hydration. Creatinine down to 1.5 from 1.3 Potassium much better 3.5 PT recommended, family benefit from SNU She is very weak and soft spoken , ate more today, most of korean toast, more alert Plan: Continue PT OT recommended SNU if family/pt agreeable Full code Avoid nephrotoxins continue IV hydration Vitals Vitals Vital Signs Date Time Temp Pulse Resp B/P (MAP) Pulse Ox O2 Delivery O2 Flow Rate FiO2 08/30/18 07:00 97.6 74 18 133/70 (91) 94 Room Air 97.6 08/29/18 20:00 1.5 Physical Exam General: Alert, Oriented X3, Cooperative, No acute distress, Other (oriented to self and place, calm, weak, poor intake) Heart: Regular rate, Normal S1, Normal S2, No murmurs Lungs: Clear Abdomen: Normal bowel sounds, Soft, No tenderness, No hepatosplenomegaly, No masses Extremities: No clubbing, No cyanosis, No edema, Normal pulses, No tenderness/ swelling Skin: Other (senile skin turgor, minimal subcutaneous tissue sacral pressure wounds) Assessment and Plan Assessmemt and Plan Problems Medical Problems: (1) Elevated serum creatinine Status: Acute (2) Skin breakdown Status: Acute (3) Weakness Status: Acute Comment Review of Relevant I have reviewed the following items zeus (where applicable) has been applied. Labs Laboratory Tests Test 08/29/18 05:00 08/29/18 05:10 Sodium Level 144 mmol/L (136-145) Potassium Level 5.1 mmol/L (3.5-5.1) Chloride Level 112 mmol/L (98-107) Carbon Dioxide Level 24 mmol/L (21-32) Anion Gap 8 (6-14) Blood Urea Nitrogen 24 mg/dL (7-20) Creatinine 1.3 mg/dL (0.6-1.0) Estimated GFR (Cockcroft-Gault) 38.8 Glucose Level 73 mg/dL (70-99) Calcium Level 8.5 mg/dL (8.5-10.1) Magnesium Level 1.7 mg/dL (1.8-2.4) Microbiology 08/25/18 Blood Culture - Preliminary, Resulted NO GROWTH AFTER 4 DAYS Medications Current Medications Sodium Chloride 1,000 ml @ 1,000 mls/hr 1X ONCE IV Last administered on 08/25 18:13; Start 08/25/18 at 18:00; Stop 08/25/18 at 18:59; Status DC Potassium Chloride (Klor-Con) 40 meq 1X ONCE PO Last administered on 18:12; Start 08/25/18 at 18:00; Stop 08/25/18 at 18:01; Status DC Azithromycin (Zithromax) 1,000 mg 1X ONCE PO ; Start 08/25/18 at 18:30; Stop 08/25/18 at 18:31; Status UNV Ceftriaxone Sodium (Rocephin) 1 gm 1X ONCE IVP Last administered on 19:06; Start 08/25/18 at 18:30; Stop 08/25/18 at 18:31; Status DC Vancomycin HCl (Vanco Per Pharmacy) 1 each PRN DAILY PRN MC SEE COMMENTS Last administered on 08/25/18at 20:41; Start 08/25/18 at 18:30; Stop 08/26/18 at 08 :01; Status DC Vancomycin HCl 1.5 gm/Sodium Chloride 500 ml @ 250 mls/hr 1X ONCE IV Last administered on 08/25/18 19:07; Start 08/25/18 at 18:45; Stop 08/25/18 at 20 :44; Status DC Ondansetron HCl (Zofran) 4 mg 1X ONCE IV Last administered on 08/25/18at 19:06 ; Start 08/25/18 at 18:45; Stop 08/25/18 at 18:46; Status DC Sodium Chloride 1,000 ml @ 1,000 mls/hr 1X ONCE IV Last administered on 08/25at 19:22; Start 08/25/18 at 18:45; Stop 08/25/18 at 19:44; Status DC Fentanyl Citrate (Fentanyl 2ml Vial) 50 mcg 1X ONCE IV Last administered on at 19:06; Start 08/25/18 at 19:00; Stop 08/25/18 at 19:01; Status DC Ondansetron HCl (Zofran) 4 mg PRN Q8HRS PRN IV NAUSEA/VOMITING; Start at 19:00; Stop 08/26/18 at 08:01; Status DC Fentanyl Citrate (Fentanyl 2ml Vial) 50 mcg PRN Q1HR PRN IV PAIN; Start at 19:00; Stop 08/26/18 at 18:59; Status DC Sodium Chloride 1,000 ml @ 125 mls/hr Q8H IV Last administered on 08/26/18at 12:46; Start 08/25/18 at 18:47; Stop 08/26/18 at 18:46; Status DC Acetaminophen (Tylenol) 650 mg PRN Q4HRS PRN PO FEVER Last administered on at 09:05; Start 08/25/18 at 19:00; Stop 08/26/18 at 18:59; Status DC Vancomycin HCl (Vancomycin Random Level) 1 each 1X ONCE MC ; Start 08/27/18 at 19:00; Stop 08/27/18 at 19:01; Status Cancel Influenza Virus Vaccine (Afluria Trivalent [id number] Syringe) 0.5 ml ONCE ONCE VAX IM Last administered on 08/26/18at 12:49; Start 08/25/18 at 22:00; Stop 08/25/18 at 22:01; Status DC Ondansetron HCl (Zofran) 4 mg PRN Q6HRS PRN IV NAUSEA/VOMITING; Start at 08:15 Vitamin D (Vitamin D3) 3,000 unit DAILY PO Last administered on 08/30/18at 09:28 ; Start 08/26/18 at 09:00 Potassium Chloride (Klor-Con) 40 meq 1X ONCE PO Last administered on at 09:05; Start 08/26/18 at 09:00; Stop 08/26/18 at 09:01; Status DC Potassium Chloride (Klor-Con) 40 meq DAILYWBKFT PO ; Start 08/27/18 at 08:00; Stop 08/27/18 at 08:00; Status DC Potassium Chloride (Klor-Con) 40 meq BIDWMEALS PO Last administered on at 17:22; Start 08/26/18 at 17:00 Nystatin (Nystop) 1 americo BID TP Last administered on 08/30/18at 09:27; Start at 14:30 Vitamin A/Vitamin D (Vitamin A & D Ointment) 1 americo PRN BID PRN TP SKIN PROTECTION; Start 08/26/18 at 14:15 Sodium Chloride 1,000 ml @ 80 mls/hr [id number] IV Last administered on at 19:51; Start 08/27/18 at 11:30 Magnesium Sulfate 50 ml @ 25 mls/hr PRN DAILY PRN IV for Mag < 1.7 on am labs; Start 08/27/18 at 15:30 Active Scripts Active Reported Doxycycline Hyclate 100 Mg Capsule 1 Cap PO BID Chlorthalidone (Chlorthalidone) 25 Mg Tablet 25 Mg PO DAILY Furosemide 20 Mg Tablet 20 Mg PO DAILY Potassium Chloride 10 Meq Tab.sr.24h 10 Meq PO DAILY Vitamin D3 (Cholecalciferol (Vitamin D3)) 1,000 Unit Tablet 3,000 Unit PO DAILY Vitals/I & O Vital Sign - Last 24 Hours 08/29/18 08/29/18 08/29/18 08/29/18 11:16 15:21 19:00 20:00 Temp 98.5 97.3 98.1 98.5 97.3 98.1 Pulse 70 76 71 Resp 18 18 17 B/P (MAP) 109/44 (65) 121/36 (64) 121/55 (77) Pulse Ox 95 94 94 O2 Delivery Room Air Room Air Room Air Room Air O2 Flow Rate 1.5 08/29/18 08/30/18 08/30/18 23:00 02:57 07:00 Temp 98.2 98.1 97.6 98.2 98.1 97.6 Pulse 80 64 74 Resp 17 15 18 B/P (MAP) 118/57 (77) 119/56 (77) 133/70 (91) Pulse Ox 95 100 94 O2 Delivery Room Air Room Air Room Air Intake and Output 08/29/18 08/29/1819 15:01 23:01 07:01 Intake Total 100 ml 200 ml Output Total 2 ml 0 ml Balance 100 ml 198 ml 0 ml Nutrition Consultation Dietary Evaluation: Recommendations by RD: Increase Calorie Intake, Protein supplementation Comments: continued ensure enlive and ensure pudding bid PU open to air Expected Outcomes/Goals: to meet > 50% est nutr needs- goal ongoing Interpretation of weight loss: >5% in 1 month Malnutrition Findings: Food and Nutrition Intake (Sev: <50% est energy req 5days Weight Status: Overweight LYNETTE RAMOS MD Aug 30, 2018 10:21
[2018-08-30 10:47] LABS: BASO % 1 % (0-3); EOS # 0.2 x10^3/uL (0.0-0.7); EOS % 3 % (0-3); HEMOGLOBIN 12.4 g/dL (12.0-15.5); LYMPH # 1.8 x10^3/uL (1.0-4.8); LYMPH % 25 % (24-48); MEAN CORPUSCULAR HEMOGLOBIN 30 pg (25-35); MEAN CORPUSCULAR HGB CONC 34 g/dL (31-37); MEAN CORPUSCULAR VOLUME 89 fL (79-100); MONO # 0.7 x10^3/uL (0.0-1.1); MONO % 9 % (0-9); NEUT # 4.5 x10^3uL (1.8-7.7); NEUT % 62 % (31-73); PLATELET COUNT 104 x10^3/uL (140-400); RED BLOOD COUNT 4.17 x10^6/uL (3.50-5.40); RED CELL DISTRIBUTION WIDTH 14.7 % (11.5-14.5); WHITE BLOOD COUNT 7.2 x10^3/uL (4.0-11.0)
[2018-08-30 11:00] VITALS: BP 103/43
[2018-08-30 11:12] LABS: ALBUMIN 1.7 g/dL (3.4-5.0); ALBUMIN/GLOBULIN RATIO 0.4 (1.0-1.7); CALCIUM 8.4 mg/dL (8.5-10.1); CREATININE 1.2 mg/dL (0.6-1.0); GFR 42.6; POTASSIUM 4.2 mmol/L (3.5-5.1); TOTAL BILIRUBIN 0.5 mg/dL (0.2-1.0); TOTAL PROTEIN 5.6 g/dL (6.4-8.2)
[2018-08-30] MEDS: IV NORMAL SALINE 1000ML BAG 1,000 ML IV SCH (13:50)
[2018-08-30 19:40] VITALS: BP 125/60
[2018-08-30 23:25] VITALS: BP 116/53
[2018-08-31] MEDS: IV NORMAL SALINE 1000ML BAG 1,000 ML IV SCH ×2 (02:00→12:07)
[2018-08-31 03:50] VITALS: BP 147/72
[2018-08-31 07:37] VITALS: BP 124/64
[2018-08-31] MEDS: POTASSIUM CHLORIDE 20 MEQ TABLET.ER. PO SCH (08:00)
[2018-08-31] MEDS: CHOLECALCIFEROL (VITAMIN D3) 1,000 UNIT TABLET PO SCH (08:13)
[2018-08-31] MEDS: NYSTATIN TOPICAL POWDER 15GM BOTTLE. TP SCH (08:13)
--- NOTE | 2018-08-31 08:51 | NUR ---
Palliative care consulted and family has a meeting with Pat today at 1030. SW will continue to follow.
--- NOTE | 2018-08-31 10:32 | PDOC ---
PROGRESS NOTES Chief Complaint Chief Complaint Severe dehydration evidenced by hemoconcentration reactive leukocytosis and hypercalcemia - Sepsis/SIRS with AK I VMN-lactate 4.1 on admission, down with IV fluid poor oral intake Critical hypokalemia 2.9 BETTER/RESOLVED GEN WEAKNESS - recommend hospice AK I VMN-creatinine 2.6-on chlorthalidone at home Worsening generalized weakness in the background of dehydration Possible dementia GRade 2 coccyx 3 SUPERFICIAL wounds, small FULL CODE, will go home with hospice today History of Present Illness History of Present Illness Labs are much better after 24-48 hours of IV hydration. Creatinine down to 1.5 from 1.3 Potassium much better 3.5 PT recommended, family benefit from SNU She is very weak and soft spoken , ate more today, most of kazakh toast, more alert Plan: Continue PT OT recommended SNU if family/pt agreeable Full code Avoid nephrotoxins continue IV hydration family in room , informed of plans today Vitals Vitals Vital Signs Date Time Temp Pulse Resp B/P (MAP) Pulse Ox O2 Delivery O2 Flow Rate FiO2 08/31/18 08:20 Room Air 08/31/18 07:37 98.2 57 20 124/64 (84) 95 98.2 08/30/18 20:10 1.5 Physical Exam General: Alert, Oriented X3, Cooperative, No acute distress, Other (oriented to self and place, calm, weak, poor intake) Heart: Regular rate, Normal S1, Normal S2, No murmurs Lungs: Clear Abdomen: Normal bowel sounds, Soft, No tenderness, No hepatosplenomegaly, No masses Extremities: No clubbing, No cyanosis, No edema, Normal pulses, No tenderness/ swelling Skin: Other (senile skin turgor, minimal subcutaneous tissue sacral pressure wounds) Labs LABS Laboratory Tests Test 08/31/18 06:47 Magnesium Level 1.8 mg/dL (1.8-2.4) Assessment and Plan Assessmemt and Plan Problems Medical Problems: (1) Elevated serum creatinine Status: Acute (2) Skin breakdown Status: Acute (3) Weakness Status: Acute Comment Review of Relevant I have reviewed the following items zeus (where applicable) has been applied. Labs Laboratory Tests Test 08/30/18 09:10 08/31/18 06:47 White Blood Count 7.2 x10^3/uL (4.0-11.0) Red Blood Count 4.17 x10^6/uL (3.50-5.40) Hemoglobin 12.4 g/dL (12.0-15.5) Hematocrit 37.0 % (36.0-47.0) Mean Corpuscular Volume 89 fL (79-100) Mean Corpuscular Hemoglobin 30 pg (25-35) Mean Corpuscular Hemoglobin Concent 34 g/dL (31-37) Red Cell Distribution Width 14.7 % (11.5-14.5) Platelet Count 104 x10^3/uL (140-400) Neutrophils (%) (Auto) 62 % (31-73) Lymphocytes (%) (Auto) 25 % (24-48) Monocytes (%) (Auto) 9 % (0-9) Eosinophils (%) (Auto) 3 % (0-3) Basophils (%) (Auto) 1 % (0-3) Neutrophils # (Auto) 4.5 x10^3uL (1.8-7.7) Lymphocytes # (Auto) 1.8 x10^3/uL (1.0-4.8) Monocytes # (Auto) 0.7 x10^3/uL (0.0-1.1) Eosinophils # (Auto) 0.2 x10^3/uL (0.0-0.7) Basophils # (Auto) 0.0 x10^3/uL (0.0-0.2) Sodium Level 141 mmol/L (136-145) Potassium Level 4.2 mmol/L (3.5-5.1) Chloride Level 110 mmol/L (98-107) Carbon Dioxide Level 26 mmol/L (21-32) Anion Gap 5 (6-14) Blood Urea Nitrogen 21 mg/dL (7-20) Creatinine 1.2 mg/dL (0.6-1.0) Estimated GFR (Cockcroft-Gault) 42.6 BUN/Creatinine Ratio 18 (6-20) Glucose Level 76 mg/dL (70-99) Calcium Level 8.4 mg/dL (8.5-10.1) Magnesium Level 1.7 mg/dL (1.8-2.4) 1.8 mg/dL (1.8-2.4) Total Bilirubin 0.5 mg/dL (0.2-1.0) Aspartate Amino Transf (AST/SGOT) 18 U/L (15-37) Alanine Aminotransferase (ALT/SGPT) 13 U/L (14-59) Alkaline Phosphatase 99 U/L (46-116) Total Protein 5.6 g/dL (6.4-8.2) Albumin 1.7 g/dL (3.4-5.0) Albumin/Globulin Ratio 0.4 (1.0-1.7) Laboratory Tests Test 08/31/18 06:47 Magnesium Level 1.8 mg/dL (1.8-2.4) Microbiology 08/25/18 Blood Culture - Final, Complete NO GROWTH AFTER 5 DAYS Medications Current Medications Sodium Chloride 1,000 ml @ 1,000 mls/hr 1X ONCE IV Last administered on 08/25 18:13; Start 08/25/18 at 18:00; Stop 08/25/18 at 18:59; Status DC Potassium Chloride (Klor-Con) 40 meq 1X ONCE PO Last administered on 18:12; Start 08/25/18 at 18:00; Stop 08/25/18 at 18:01; Status DC Azithromycin (Zithromax) 1,000 mg 1X ONCE PO ; Start 08/25/18 at 18:30; Stop 08/25/18 at 18:31; Status UNV Ceftriaxone Sodium (Rocephin) 1 gm 1X ONCE IVP Last administered on at 19:06; Start 08/25/18 at 18:30; Stop 08/25/18 at 18:31; Status DC Vancomycin HCl (Vanco Per Pharmacy) 1 each PRN DAILY PRN MC SEE COMMENTS Last administered on 08/25/18at 20:41; Start 08/25/18 at 18:30; Stop 08/26/18 at 08 :01; Status DC Vancomycin HCl 1.5 gm/Sodium Chloride 500 ml @ 250 mls/hr 1X ONCE IV Last administered on 08/25/18at 19:07; Start 08/25/18 at 18:45; Stop 08/25/18 at 20 :44; Status DC Ondansetron HCl (Zofran) 4 mg 1X ONCE IV Last administered on 08/25/18at 19:06 ; Start 08/25/18 at 18:45; Stop 08/25/18 at 18:46; Status DC Sodium Chloride 1,000 ml @ 1,000 mls/hr 1X ONCE IV Last administered on 08/25at 19:22; Start 08/25/18 at 18:45; Stop 08/25/18 at 19:44; Status DC Fentanyl Citrate (Fentanyl 2ml Vial) 50 mcg 1X ONCE IV Last administered on at 19:06; Start 08/25/18 at 19:00; Stop 08/25/18 at 19:01; Status DC Ondansetron HCl (Zofran) 4 mg PRN Q8HRS PRN IV NAUSEA/VOMITING; Start at 19:00; Stop 08/26/18 at 08:01; Status DC Fentanyl Citrate (Fentanyl 2ml Vial) 50 mcg PRN Q1HR PRN IV PAIN; Start at 19:00; Stop 08/26/18 at 18:59; Status DC Sodium Chloride 1,000 ml @ 125 mls/hr Q8H IV Last administered on 08/26/18at 12:46; Start 08/25/18 at 18:47; Stop 08/26/18 at 18:46; Status DC Acetaminophen (Tylenol) 650 mg PRN Q4HRS PRN PO FEVER Last administered on at 09:05; Start 08/25/18 at 19:00; Stop 08/26/18 at 18:59; Status DC Vancomycin HCl (Vancomycin Random Level) 1 each 1X ONCE MC ; Start 08/27/18 at 19:00; Stop 08/27/18 at 19:01; Status Cancel Influenza Virus Vaccine (Afluria Trivalent [id number] Syringe) 0.5 ml ONCE ONCE VAX IM Last administered on 08/26/18at 12:49; Start 08/25/18 at 22:00; Stop 08/25/18 at 22:01; Status DC Ondansetron HCl (Zofran) 4 mg PRN Q6HRS PRN IV NAUSEA/VOMITING; Start at 08:15 Vitamin D (Vitamin D3) 3,000 unit DAILY PO Last administered on 08/31/18at 08:13 ; Start 08/26/18 at 09:00 Potassium Chloride (Klor-Con) 40 meq 1X ONCE PO Last administered on at 09:05; Start 08/26/18 at 09:00; Stop 08/26/18 at 09:01; Status DC Potassium Chloride (Klor-Con) 40 meq DAILYWBKFT PO ; Start 08/27/18 at 08:00; Stop 08/27/18 at 08:00; Status DC Potassium Chloride (Klor-Con) 40 meq BIDWMEALS PO Last administered on at 17:22; Start 08/26/18 at 17:00 Nystatin (Nystop) 1 americo BID TP Last administered on 08/31/18at 08:13; Start at 14:30 Vitamin A/Vitamin D (Vitamin A & D Ointment) 1 americo PRN BID PRN TP SKIN PROTECTION; Start 08/26/18 at 14:15 Sodium Chloride 1,000 ml @ 80 mls/hr [id number] IV Last administered on 08/31/18at 02:00; Start 08/27/18 at 11:30 Magnesium Sulfate 50 ml @ 25 mls/hr PRN DAILY PRN IV for Mag < 1.7 on am labs; Start 08/27/18 at 15:30 Active Scripts Active Reported Doxycycline Hyclate 100 Mg Capsule 1 Cap PO BID Chlorthalidone (Chlorthalidone) 25 Mg Tablet 25 Mg PO DAILY Furosemide 20 Mg Tablet 20 Mg PO DAILY Potassium Chloride 10 Meq Tab.sr.24h 10 Meq PO DAILY Vitamin D3 (Cholecalciferol (Vitamin D3)) 1,000 Unit Tablet 3,000 Unit PO DAILY Vitals/I & O Vital Sign - Last 24 Hours 08/30/18 08/30/18 08/30/18 08/30/18 11:00 19:40 20:10 23:25 Temp 98.2 98.4 98.6 98.2 98.4 98.6 Pulse 78 54 56 Resp 16 16 16 B/P (MAP) 103/43 (63) 125/60 (81) 116/53 (74) Pulse Ox 96 95 96 O2 Delivery Room Air Room Air Room Air Room Air O2 Flow Rate 1.5 08/31/18 08/31/18 08/31/18 03:50 07:37 08:20 Temp 97.4 98.2 97.4 98.2 Pulse 61 57 Resp 16 20 B/P (MAP) 147/72 (97) 124/64 (84) Pulse Ox 97 95 O2 Delivery Room Air Room Air Room Air Intake and Output 08/30/18 08/30/18 08/31/18 15:01 23:01 07:01 Intake Total 50 ml 120 ml 50 ml Balance 50 ml 120 ml 50 ml Nutrition Consultation Dietary Evaluation: Recommendations by RD: Increase Calorie Intake, Protein supplementation Comments: continued ensure enlive and ensure pudding bid PU open to air Expected Outcomes/Goals: to meet > 50% est nutr needs- goal ongoing Interpretation of weight loss: >5% in 1 month Malnutrition Findings: Food and Nutrition Intake (Sev: <50% est energy req 5days Weight Status: Overweight LYNETTE RAMOS MD Aug 31, 2018 10:32
[2018-08-31 11:01] VITALS: BP 101/43
--- NOTE | 2018-08-31 11:40 | PDOC3 ---
Discharge Summary Date of Admission: Aug 25, 2018 Date of Discharge: Aug 31, 2018 Follow-Up: 1-2 days Admitting Diagnosis comment: discharge diagnosis Chief Complaint Severe dehydration evidenced by hemoconcentration reactive leukocytosis and hypercalcemia - Sepsis/SIRS with AK I VMN-lactate 4.1 on admission, down with IV fluid poor oral intake Critical hypokalemia 2.9 BETTER/RESOLVED GEN WEAKNESS - recommend hospice AK I VMN-creatinine 2.6-on chlorthalidone at home Worsening generalized weakness in the background of dehydration moderate dementia GRade 2 coccyx 3 SUPERFICIAL wounds, small FULL CODE, will go home with hospice today History of Present Illness History of Present Illness Labs are much better after 24-48 hours of IV hydration. Creatinine down to 1.5 from 1.3 She is very weak and soft spoken , ate more today for breakfast , most of portuguese toast, more alert Plan: Avoid nephrotoxins d/c today family in room , informed of plans today Vitals Vitals Vital Signs Date Time Temp Pulse Resp B/P (MAP) Pulse Ox O2 Delivery O2 Flow Rate FiO2 08/31/18 08:20 Room Air 08/31/18 07:37 98.2 57 20 124/64 (84) 95 98.2 08/30/18 20:10 1.5 Physical Exam General: Alert, Oriented X3, Cooperative, No acute distress, Other (oriented to self and place, calm, weak, poor intake) Heart: Regular rate, Normal S1, Normal S2, No murmurs Lungs: Clear Abdomen: Normal bowel sounds, Soft, No tenderness, No hepatosplenomegaly, No masses Extremities: No clubbing, No cyanosis, No edema, Normal pulses, No tenderness/ swelling Skin: Other (senile skin turgor, minimal subcutaneous tissue sacral pressure wounds) Labs d/c planning 36 min FINAL DIAGNOSIS Problems Medical Problems: (1) Elevated serum creatinine Status: Acute (2) Skin breakdown Status: Acute (3) Weakness Status: Acute Brief Hospital Course Ms. Riley is a 88 old [sex] who presented with [ ] CONDITION AT DISCHARGE: Comment (guarded prognosis) Discharge Medications Current Medications Sodium Chloride 1,000 ml @ 1,000 mls/hr 1X ONCE IV Last administered on 08/25at 18:13; Start 08/25/18 at 18:00; Stop 08/25/18 at 18:59; Status DC Potassium Chloride (Klor-Con) 40 meq 1X ONCE PO Last administered on at 18:12; Start 08/25/18 at 18:00; Stop 08/25/18 at 18:01; Status DC Azithromycin (Zithromax) 1,000 mg 1X ONCE PO ; Start 08/25/18 at 18:30; Stop 08/25/18 at 18:31; Status UNV Ceftriaxone Sodium (Rocephin) 1 gm 1X ONCE IVP Last administered on at 19:06; Start 08/25/18 at 18:30; Stop 08/25/18 at 18:31; Status DC Vancomycin HCl (Vanco Per Pharmacy) 1 each PRN DAILY PRN MC SEE COMMENTS Last administered on 08/25/18at 20:41; Start 08/25/18 at 18:30; Stop 08/26/18 at 08 :01; Status DC Vancomycin HCl 1.5 gm/Sodium Chloride 500 ml @ 250 mls/hr 1X ONCE IV Last administered on 08/25/18at 19:07; Start 08/25/18 at 18:45; Stop 08/25/18 at 20 :44; Status DC Ondansetron HCl (Zofran) 4 mg 1X ONCE IV Last administered on 08/25/18at 19:06 ; Start 08/25/18 at 18:45; Stop 08/25/18 at 18:46; Status DC Sodium Chloride 1,000 ml @ 1,000 mls/hr 1X ONCE IV Last administered on 08/25at 19:22; Start 08/25/18 at 18:45; Stop 08/25/18 at 19:44; Status DC Fentanyl Citrate (Fentanyl 2ml Vial) 50 mcg 1X ONCE IV Last administered on at 19:06; Start 08/25/18 at 19:00; Stop 08/25/18 at 19:01; Status DC Ondansetron HCl (Zofran) 4 mg PRN Q8HRS PRN IV NAUSEA/VOMITING; Start at 19:00; Stop 08/26/18 at 08:01; Status DC Fentanyl Citrate (Fentanyl 2ml Vial) 50 mcg PRN Q1HR PRN IV PAIN; Start at 19:00; Stop 08/26/18 at 18:59; Status DC Sodium Chloride 1,000 ml @ 125 mls/hr Q8H IV Last administered on 08/26/18at 12:46; Start 08/25/18 at 18:47; Stop 08/26/18 at 18:46; Status DC Acetaminophen (Tylenol) 650 mg PRN Q4HRS PRN PO FEVER Last administered on at 09:05; Start 08/25/18 at 19:00; Stop 08/26/18 at 18:59; Status DC Vancomycin HCl (Vancomycin Random Level) 1 each 1X ONCE MC ; Start 08/27/18 at 19:00; Stop 08/27/18 at 19:01; Status Cancel Influenza Virus Vaccine (Afluria Trivalent [id number] Syringe) 0.5 ml ONCE ONCE VAX IM Last administered on 08/26/18at 12:49; Start 08/25/18 at 22:00; Stop 08/25/18 at 22:01; Status DC Ondansetron HCl (Zofran) 4 mg PRN Q6HRS PRN IV NAUSEA/VOMITING; Start at 08:15 Vitamin D (Vitamin D3) 3,000 unit DAILY PO Last administered on 08/31/18 08:13 ; Start 08/26/18 at 09:00 Potassium Chloride (Klor-Con) 40 meq 1X ONCE PO Last administered on at 09:05; Start 08/26/18 at 09:00; Stop 08/26/18 at 09:01; Status DC Potassium Chloride (Klor-Con) 40 meq DAILYWBKFT PO ; Start 08/27/18 at 08:00; Stop 08/27/18 at 08:00; Status DC Potassium Chloride (Klor-Con) 40 meq BIDWMEALS PO Last administered on at 17:22; Start 08/26/18 at 17:00 Nystatin (Nystop) 1 americo BID TP Last administered on 08/31/18at 08:13; Start at 14:30 Vitamin A/Vitamin D (Vitamin A & D Ointment) 1 americo PRN BID PRN TP SKIN PROTECTION; Start 08/26/18 at 14:15 Sodium Chloride 1,000 ml @ 80 mls/hr [id number] IV Last administered on 08/31/18at 02:00; Start 08/27/18 at 11:30 Magnesium Sulfate 50 ml @ 25 mls/hr PRN DAILY PRN IV for Mag < 1.7 on am labs; Start 08/27/18 at 15:30 Active Scripts Active Reported Doxycycline Hyclate 100 Mg Capsule 1 Cap PO BID Chlorthalidone (Chlorthalidone) 25 Mg Tablet 25 Mg PO DAILY Furosemide 20 Mg Tablet 20 Mg PO DAILY Potassium Chloride 10 Meq Tab.sr.24h 10 Meq PO DAILY Vitamin D3 (Cholecalciferol (Vitamin D3)) 1,000 Unit Tablet 3,000 Unit PO DAILY Vital Signs Vital Signs Date Time Temp Pulse Resp B/P (MAP) Pulse Ox O2 Delivery O2 Flow Rate FiO2 08/31/18 11:01 97.7 69 18 101/43 (62) 97 Room Air 97.7 08/30/18 20:10 1.5 Labs Laboratory Tests Test 08/30/18 09:10 08/31/18 06:47 White Blood Count 7.2 x10^3/uL (4.0-11.0) Red Blood Count 4.17 x10^6/uL (3.50-5.40) Hemoglobin 12.4 g/dL (12.0-15.5) Hematocrit 37.0 % (36.0-47.0) Mean Corpuscular Volume 89 fL (79-100) Mean Corpuscular Hemoglobin 30 pg (25-35) Mean Corpuscular Hemoglobin Concent 34 g/dL (31-37) Red Cell Distribution Width 14.7 % (11.5-14.5) Platelet Count 104 x10^3/uL (140-400) Neutrophils (%) (Auto) 62 % (31-73) Lymphocytes (%) (Auto) 25 % (24-48) Monocytes (%) (Auto) 9 % (0-9) Eosinophils (%) (Auto) 3 % (0-3) Basophils (%) (Auto) 1 % (0-3) Neutrophils # (Auto) 4.5 x10^3uL (1.8-7.7) Lymphocytes # (Auto) 1.8 x10^3/uL (1.0-4.8) Monocytes # (Auto) 0.7 x10^3/uL (0.0-1.1) Eosinophils # (Auto) 0.2 x10^3/uL (0.0-0.7) Basophils # (Auto) 0.0 x10^3/uL (0.0-0.2) Sodium Level 141 mmol/L (136-145) Potassium Level 4.2 mmol/L (3.5-5.1) Chloride Level 110 mmol/L (98-107) Carbon Dioxide Level 26 mmol/L (21-32) Anion Gap 5 (6-14) Blood Urea Nitrogen 21 mg/dL (7-20) Creatinine 1.2 mg/dL (0.6-1.0) Estimated GFR (Cockcroft-Gault) 42.6 BUN/Creatinine Ratio 18 (6-20) Glucose Level 76 mg/dL (70-99) Calcium Level 8.4 mg/dL (8.5-10.1) Magnesium Level 1.7 mg/dL (1.8-2.4) 1.8 mg/dL (1.8-2.4) Total Bilirubin 0.5 mg/dL (0.2-1.0) Aspartate Amino Transf (AST/SGOT) 18 U/L (15-37) Alanine Aminotransferase (ALT/SGPT) 13 U/L (14-59) Alkaline Phosphatase 99 U/L (46-116) Total Protein 5.6 g/dL (6.4-8.2) Albumin 1.7 g/dL (3.4-5.0) Albumin/Globulin Ratio 0.4 (1.0-1.7) Laboratory Tests Test 08/31/18 06:47 Magnesium Level 1.8 mg/dL (1.8-2.4) Allergies Allergies Coded Allergies Type Severity Reaction Last Updated Verified No Known Drug Allergies 08/25/18 No Disposition/Orders: D/C to Home w/ Hospice Patient Instructions d/c planning 36 min LYNETTE RAMOS MD Aug 31, 2018 11:40
--- NOTE | 2018-08-31 11:45 | DISCH ---
DISCHARGE DISCHARGE INFORMATION: FINAL DIAGNOSIS Problems Medical Problems: (1) Elevated serum creatinine Status: Acute (2) Skin breakdown Status: Acute (3) Weakness Status: Acute CONDITION ON DISCHARGE: Guarded CODE STATUS: Code Status: DNR/DNI SENIOR LIVING: SNF STAY <30 DAYS: No HOSPICE: HOSPICE: Yes HOSPICE EVAL & TREAT: Yes LTAC: ADMIT TO LTAC: No POST DISCHARGE ORDERS: ACTIVITY ORDERS: Activity as tolerated DIET AFTER DISCHARGE: Regular CHECKS AFTER DISCHARGE: CHECKS AFTER DISCHARGE: Check blood press - daily TREATMENT/EQUIPMENT ORDERS: Physical Therapy For: Evalulation/Treatment Occupational Therapy For: Evaluation/Treatment Speech Language Pathology For: Evaluation/Treatment DISCHARGE MEDICATIONS: Home Meds Reported Medications Doxycycline Hyclate (DOXYCYCLINE HYCLATE) 100 Mg Capsule, 1 CAP PO BID for BED SORES , #20 CAP 08/26/18 Chlorthalidone (CHLORTHALIDONE ) 25 Mg Tablet, 25 MG PO DAILY for DIURETIC, TAB 08/26/18 Furosemide (FUROSEMIDE) 20 Mg Tablet, 20 MG PO DAILY for EDEMA, TAB 08/26/18 Potassium Chloride (POTASSIUM CHLORIDE) 10 Meq Tab.sr.24h, 10 MEQ PO DAILY for REPLACEMENT, TAB.SR 08/26/18 Cholecalciferol (Vitamin D3) (VITAMIN D3) 1,000 Unit Tablet, 3000 UNIT PO DAILY for VITAMIN, TAB 08/26/18 LYNETTE RAMOS MD Aug 31, 2018 11:45
[2018-08-31] MEDS ORDERED: NYST60PO TP (11:48)
[2018-08-31] MEDS ORDERED: SERT25TA4 PO (11:48)
[2018-08-31] MEDS ORDERED: VITS56.7 TP (11:48)
--- NOTE | 2018-08-31 11:53 | DISCH ---
DISCHARGE WITH HOME HEALTH DISCHARGE INFORMATION: Final Diagnosis: Problems Medical Problems: (1) Elevated serum creatinine Status: Acute (2) Skin breakdown Status: Acute (3) Weakness Status: Acute Condition on Discharge: Guarded CODE STATUS: Code Status: Full HOME HEALTH: Face to Face: I certify this patient is under my care and that I, or a nurse practitioner or physician's support assistant working with me, had a face to face encounter that meets the physician face to face encounter requirements with this patient on []. Medical Complications: Dementia, HTN Physical Therapy For: Evalulation/Treatment Occupational Therapy For: Evaluation/Treatment Speech Language Pathology For: Evaluation/Treatment Home Health Aide For: Self-care TIMBER TRIMMER For: Community Resources Pt Meets Homebound Status: Poor coordination w/ amb. POST DISCHARGE ORDERS: Activity Instructions for Disc: Activity as tolerated Bathing Instructions: Shower-keep dressing dry DIET AFTER DISCHARGE: Regular Wound/Incision Care: Change dressing CHECKS AFTER DISCHARGE: Checks after discharge: Check blood press - daily CERTIFICATION STATEMENT: Certification Statement: Certification Statement: Based on the above finding, I certify that this patient is confined to the home and needs intermittent nursing home care, physical therapy and/or speech therapy, or continues to need occupational therapy.~ This patient is under my care, and I have initiated the establishment of the plan of care.~ This patient will be followed by myself or a community physician who will periodically review the plan of care. Home Meds Active Scripts Sertraline Hcl (SERTRALINE HCL) 25 Mg Tablet, 25 MG PO DAILY for depression for 30 Days, #30 TAB Prov:LYNETTE RAMOS MD 08/31/18 Vits A & D/White Pet/Lanolin (VITAMIN A & D OINTMENT) 56.7 Gm Oint...g., 1 JANE TP PRN BID PRN for SKIN PROTECTION for 28 Days, #60 MISC Prov:LYNETTE RAMOS MD 08/31/18 Nystatin (NYSTOP) 60 Gm Powder, 1 JANE TP BID for rash for 14 Days, #30 MISC Prov:LYNETTE RAMOS MD 08/31/18 Reported Medications Doxycycline Hyclate (DOXYCYCLINE HYCLATE) 100 Mg Capsule, 1 CAP PO BID for BED SORES , #20 CAP 08/26/18 Cholecalciferol (Vitamin D3) (VITAMIN D3) 1,000 Unit Tablet, 3000 UNIT PO DAILY for VITAMIN, TAB 08/26/18 Discontinued Reported Medications Chlorthalidone (CHLORTHALIDONE ) 25 Mg Tablet, 25 MG PO DAILY for DIURETIC, TAB 08/26/18 Furosemide (FUROSEMIDE) 20 Mg Tablet, 20 MG PO DAILY for EDEMA, TAB 08/26/18 Potassium Chloride (POTASSIUM CHLORIDE) 10 Meq Tab.sr.24h, 10 MEQ PO DAILY for REPLACEMENT, TAB.SR 08/26/18 LYNETTE RAMOS MD Aug 31, 2018 11:53
[2018-08-31] MEDS ORDERED: SERTRALINE 25 MG TABLET. PO SCH (12:00)
--- NOTE | 2018-08-31 13:01 | NUR ---
LESLIE following pt. Family wants to take pt home with home health. Spoke with pt's daughter, Felicitas at bedside and she does not have a preference. Pt's daughter agreeable with [facility]. LESLIE phoned and faxed orders to [facility], phone: [phone], fax: [phone]. SW also provided daughter with home care services information for private duty assistance. RN has arranged for W/c transportation for 1400.
--- NOTE | 2018-08-31 13:24 | PDOC2 ---
PALLIATIVE CARE Palliative Care Note Palliative Care Patient alert. Sitting up in chair. Confused at times. Does not answer questions but does respond to family. Met with daughters Neelima and Michelle, granddaughter Anu. Neelima states she is DPOA. Patient has other children not involved in care but are aware of hospitalization /illness. Olesya Suresh Lynn Reviewed medical condition; weakness, dehydration --improved. ANNIE improved with hydration. wounds, ?Dementia, Patient lives at home with (poor health as well) cared for by Michelle and Neelima. Patient had stopped eating and drinking at home. pale and significant weight loss recently. Family concerned patient may be depressed. Labs and X-rays reviewed. Patient ambulatory. PT/OT recommend home with 22/03 care. Patient is followed by [facility]ON[facility] as primary care-provider. Family plans to change to [facility]. Discussed Code Status; Family requests DNR/DNI. Understand without this attempt she likely would . Outside the Hospital DNR/DNI form signed. Family request list of hired caregivers. Martha NELSON will assist. Plan discharge today (will need w/c van transport). DRN/DNI. FABIO RITTER Aug 31, 2018 13:24
--- NOTE | 2018-08-31 14:45 | NUR ---
Discharge Note: MISTY BRANDT Discharge instructions and discharge home medications reviewed with Family Member and a copy given. All questions have been answered and understanding verbalized. The following instructions and handouts were given: discharge instructions Discontinued lines and drains: 22 gauge right FA, tip intact. patient tolerated well. Patient discharged to home with home health via [facility] transport.
== END 2018-08-31 14:45 | disposition home health service (06) | DRG 871 ==
LOC: ER 15:55 → 6 SOUTH 18:00
PROVIDERS: ADMIT Internal Medicine; ATTEND Internal Medicine
DX: A41.9 Sepsis, unspecified organism (principal); N17.0 Acute kidney failure with tubular necrosis; I95.9 Hypotension, unspecified; I10 Essential (primary) hypertension; E86.0 Dehydration; E83.52 Hypercalcemia; D72.828 Other elevated white blood cell count; E87.6 Hypokalemia; F03.90 Unspecified dementia, unspecified severity, without behavioral disturbance, psychotic disturbance, mood disturbance, and anxiety; Z90.49 Acquired absence of other specified parts of digestive tract
CPT/HCPCS: 36415; 71045; 80048; 80053; 81001; 83605; 83735; 84443; 84484; 85025; 85651; 87040; 87493; 90471; 90756; 93005; 96361; 96365; 96366; 96375; J0696; J2405; J3010; J3370; J7030; J7040; 97530; 97535; 99285-25; Q2035

== ENCOUNTER → 2018-09-06 | Outpatient (CLI) | payer MEDICARE, OTHER ==
[2018-08-31 11:01] VITALS: BP 101/43
[~2018-09-06] MED LIST: CHLO25TA10 PO; CHOL10003 PO; DOXY100C2 PO; FURO20TA3 PO; NYST60PO TP; POTA10TA12 PO; SERT25TA4 PO; VITS56.7 TP
== END | disposition home or self-care (01) ==
LOC: PMGWOUND 11:12
PROVIDERS: ATTEND Emergency Medicine Undersea and Hyperbaric Medicine
DX: L89.322 Pressure ulcer of left buttock, stage 2 (principal); L89.312 Pressure ulcer of right buttock, stage 2; I10 Essential (primary) hypertension; B37.2 Candidiasis of skin and nail; B35.1 Tinea unguium; M81.0 Age-related osteoporosis without current pathological fracture; E66.9 Obesity, unspecified; Z68.28 Body mass index [BMI] 28.0-28.9, adult; Z90.49 Acquired absence of other specified parts of digestive tract
CPT/HCPCS: 99214; G0463

== ENCOUNTER → 2018-09-20 | Outpatient (CLI) | payer OTHER ==
[2018-08-31 11:01] VITALS: BP 101/43
== END | disposition home or self-care (01) ==
LOC: PMGWOUND 11:47
PROVIDERS: ATTEND Emergency Medicine Undersea and Hyperbaric Medicine
DX: L89.159 Pressure ulcer of sacral region, unspecified stage (principal); B37.2 Candidiasis of skin and nail; I10 Essential (primary) hypertension; E66.9 Obesity, unspecified; Z68.38 Body mass index [BMI] 38.0-38.9, adult; M81.0 Age-related osteoporosis without current pathological fracture; Z90.49 Acquired absence of other specified parts of digestive tract
CPT/HCPCS: 99213